=== PATIENT | female | born 1960 | race Hispanic/Latino ===

== ENCOUNTER 2017-10-05 10:41 | Emergency (ER) | payer OTHER ==
[2017-10-05] MEDS ORDERED: ADENOSINE 6 MG/ 2ML VIAL IV ONE (10:51)
[2017-10-05] MEDS ORDERED: NA CHLORIDE 0.9% 1,000 ML ONE (10:54)
[2017-10-05 11:15] LABS: Absolute Monocytes 0.2 K/uL (0.1-1.3); Absolute Neutrophil 8.1 K/uL (1.8-8.0); Basophils % 0.7 % (0-1.3); Eosinophils % 2.2 % (0-4.4); Hematocrit 43.2 % (36.0-45.0); Lymphocytes % 18.8 % (15.3-44.8); MCH 31.2 pg (27.0-35.0); MCV 93.6 fL (80-100); MPV 8.9 fL (7.6-11.3); Monocytes % 2.1 % (3.3-12.3); RBC Red Blood Cell Count 4.61 M/uL (3.86-4.86)
[2017-10-05 11:20] LABS: Protime INR 0.91
--- NOTE | 2017-10-05 11:31 | RAD REPORT ---
EXAM DESCRIPTION: RAD - Chest Single View - 10/05/2017 11:21 am CLINICAL HISTORY: Chest pain. COMPARISON: 08/11/2015 FINDINGS: Portable technique limits examination quality. The lungs are grossly clear. The heart is normal in size. No displaced fractures. IMPRESSION: No acute intrathoracic process suspected.
[2017-10-05] MEDS ORDERED: ASPIRIN 81 MG CHEWABLE TABLET ONE (11:37)
[2017-10-05 11:47] LABS: Albumin 4.3 g/dL (3.2-5.5); Bilirubin Direct 0.1 mg/dL (0-0.2); Bilirubin Total 0.7 mg/dL (0.3-1.2); Protein, Total 7.5 g/dL (6.0-8.3)
[2017-10-05 11:49] LABS: T3 Free 3.59 pg/ml (2.84-4.24)
[2017-10-05 12:09] LABS: Thyroid Stimulating Hormone 8.57 uIU/mL (0.34-5.60)
--- NOTE | 2017-10-05 14:40 | ER ---
Nurse's Notes [facility] Name: Laura Bello Age: 57 yrs Sex: Female : 1960 Arrival Date: 10/05/2017 Time: 10:42 Bed 3 Private MD: Driss Oneill R Diagnosis: Supraventricular tachycardia;Hypothyroidism, unspecified Presentation: 10/05 10:50 Presenting complaint: Patient states: Palpitations and weakness that started around sg 0800 this morning, had this feeling before and they had to shock my heart. Transition of care: patient was not received from another setting of care. Onset of symptoms was October 05, 2017. Initial Sepsis Screen: Does the patient meet any 2 criteria? HR > 90 bpm. No. Patient's initial sepsis screen is negative. Does the patient have a suspected source of infection? No. Patient's initial sepsis screen is negative. Care prior to arrival: None. 10:50 Method Of Arrival: Ambulatory sg 11:10 Acuity: PHILLIP 1 sg Historical: - Allergies: 11:44 No Known Allergies; sg - Home Meds: 11:44 blood pressure medication [Active]; sg - PMHx: 11:44 SVT; sg - PSHx: 11:44 None; sg - Immunization history:: Adult Immunizations up to date. - Social history:: Smoking status: Patient/guardian denies using tobacco. Screenin:32 Abuse screen: Denies threats or abuse. Denies injuries from another. Nutritional sv screening: No deficits noted. Tuberculosis screening: No symptoms or risk factors identified. Fall Risk None identified. Assessment: 12:00 Reassessment: Patient appears in no apparent distress at this time. Patient and/or sg family updated on plan of care and expected duration. Pain level reassessed. Patient is alert, oriented x 3, equal unlabored respirations, skin warm/dry/pink. Patient states feeling better. Patient states symptoms have improved. 12:00 Pain: Pain does not radiate. Cardiovascular: Heart tones S1 S2 present Capillary refill sg is brisk in bilateral fingers Patient's skin is warm and dry. Chest pain is described as mild. 13:00 Reassessment: Patient appears in no apparent distress at this time. Patient and/or sg family updated on plan of care and expected duration. Pain level reassessed. Patient is alert, oriented x 3, equal unlabored respirations, skin warm/dry/pink. awaiting new orders at this time Patient states feeling better. Patient states symptoms have improved. Vital Signs: 10:40 BP 97 / 65; Pulse 190 MON; Resp 19 S; Temp 97.9; Pulse Ox 100% on R/A; Pain 0/10; sg 11:13 BP 96 / 68; Pulse 91 MON; Resp 13 S; Pulse Ox 100% on R/A; sg 11:42 BP 101 / 66; Pulse 92 MON; Resp 17 S; Pulse Ox 100% on R/A; sg 12:45 BP 105 / 65; Pulse 82 MON; Resp 16 S; Pulse Ox 99% ; Pain 0/10; sg 10:40 SVT sg 11:13 Sinus Rhythm sg 12:45 Sinus Rhythm sg ED Course: 10:40 court monitor on. Pulse ox on. NIBP on. sv 10:42 Patient arrived in ED. as 10:42 Driss Oneill MD is Private Physician. as 10:45 Mirza Dexter PA is PHCP. cp 10:45 Surendra Briseno MD is Attending Physician. cp 11:02 Inserted saline lock: 20 gauge in right antecubital area, using aseptic technique. bm6 Blood collected. 11:09 EKG done, by release and technical records clerk. reviewed by Mirza FIGUEROA. at1 11:09 EKG done, by release and technical records clerk. reviewed by Mirza FIGUEROA post cardioversion. at1 11:10 Darrel Corbett, RN is Primary Nurse. sg 11:11 Triage completed. sg 11:18 X-ray completed. Portable x-ray completed in exam room. Patient tolerated procedure mh1 well. 11:19 XRAY Chest (1 view) In Process Unspecified. EDMS 11:30 Flu and/or RSV swab sent to lab. Strep swab sent to lab. sg 11:32 Patient has correct armband on for positive identification. Placed in gown. Bed in low sv position. Call light in reach. Adult w/ patient. 12:00 Arm band placed on left ankle. sg 14:06 Urine collected: clean catch specimen, cloudy. sg 14:39 John Brooks MD is Referral Physician. cp 14:55 No provider procedures requiring assistance completed. IV discontinued, intact, sg bleeding controlled, No redness/swelling at site. Pressure dressing applied. Patient maintains SpO2 saturation greater than 95% on room air. Administered Medications: 10:58 Drug: Adenosine 6 mg Route: IVP; Site: right antecubital; 11:05 Follow up: Response: No adverse reaction; Cardiac rhythm changed sg 11:00 Drug: NS 0.9% 1000 ml Route: IV; Rate: 1 bolus; Site: right antecubital; sg 12:00 Follow up: Response: No adverse reaction; IV Status: Completed infusion; IV Intake: sg 990ml 11:30 Drug: Aspirin Chewable Tablet 324 mg Route: PO; sg 12:05 Follow up: Response: No adverse reaction sg Intake: 12:00 IV: 990ml; Total: 990ml. sg Outcome: 14:39 Discharge ordered by MD. hilaria 14:55 Discharged to home ambulatory, with family. 14:55 Condition: good 14:55 Discharge instructions given to patient, family, Instructed on discharge instructions, follow up and referral plans. safety practices, Demonstrated understanding of instructions, follow-up care. 14:58 Patient left the ED. sg Signatures: Dispatcher [employer] Leatha Tang, Darrel Navarrete RN, RN RN sg Lisha Coleman mh1 Peggy Evans Amanda, lockstitch hemmer EKG Tat1 Mirza Dexter PA PA cp Murray, Brett bm6
--- NOTE | 2017-10-05 14:40 | EDPHYS ---
Physician Documentation [facility] Name: Laura Bello Age: 57 yrs Sex: Female : 1960 Arrival Date: 10/05/2017 Time: 10:42 Bed 3 Private MD: Driss Oneill R ED Physician Surendra Briseno HPI: 10/05 11:06 This 57 yrs old Female presents to ER via Unassigned with complaints of Chest cp Pain. 11:06 Onset: The symptoms/episode began/occurred this morning, at 08:00. Associated signs and cp symptoms: Pertinent positives: shortness of breath. 11:06 The patient has experienced a previous episode. cp Historical: - Allergies: 11:44 No Known Allergies; sg - Home Meds: 11:44 blood pressure medication [Active]; sg - PMHx: 11:44 SVT; sg - PSHx: 11:44 None; sg - Immunization history:: Adult Immunizations up to date. - Social history:: Smoking status: Patient/guardian denies using tobacco. ROS: 11:12 Constitutional: Negative for body aches, chills, fever, poor PO intake. cp 11:12 Eyes: Negative for injury, pain, redness, and discharge. cp 11:12 ENT: Positive for sore throat, Negative for drainage from ear(s), ear pain, difficulty swallowing, difficulty handling secretions, hoarseness. 11:12 Neck: Negative for pain with movement, pain at rest, stiffness. 11:12 Cardiovascular: Positive for chest pain, palpitations, Negative for edema. 11:12 Respiratory: Positive for shortness of breath, Negative for cough, wheezing. 11:12 Abdomen/GI: Negative for abdominal pain, nausea, vomiting, and diarrhea, black/tarry stool, rectal bleeding. 11:12 Skin: Negative for cellulitis, rash. 11:12 Neuro: Positive for general weakness, Negative for altered mental status, headache. 11:12 All other systems are negative. Exam: 10:55 ECG was reviewed by the Attending Physician. cp 11:05 ECG was reviewed by the Attending Physician. cp 11:11 Head/Face: Normocephalic, atraumatic. Eyes: Pupils equal round and reactive to light, cp extra-ocular motions intact. Lids and lashes normal. Conjunctiva and sclera are non-icteric and not injected. Cornea within normal limits. Periorbital areas with no swelling, redness, or edema. ENT: Nares patent. No nasal discharge, no septal abnormalities noted. Tympanic membranes are normal and external auditory canals are clear. Oropharynx with no redness, swelling, or masses, exudates, or evidence of obstruction, uvula midline. Mucous membranes moist. Neck: Trachea midline, no thyromegaly or masses palpated, and no cervical lymphadenopathy. Supple, full range of motion without nuchal rigidity, or vertebral point tenderness. No Meningismus. Chest/axilla: Normal chest wall appearance and motion. Nontender with no deformity. No lesions are appreciated. 11:11 Constitutional: The patient appears in no acute distress, alert, awake, non-diaphoretic, non-toxic, well developed, well nourished, uncomfortable. 11:11 Cardiovascular: Rate: normal, Rhythm: regular, Pulses: Pulses are 2+ in right radial artery and left radial artery. Edema: is not appreciated, JVD: is not appreciated. 11:11 Respiratory: the patient does not display signs of respiratory distress, Respirations: normal, no use of accessory muscles, no retractions, no splinting, no tachypnea, labored breathing, is not present, Breath sounds: are clear throughout, no decreased breath sounds, no stridor, no wheezing. 11:11 Abdomen/GI: Inspection: abdomen appears normal, Bowel sounds: active, all quadrants, Palpation: abdomen is soft and non-tender, in all quadrants, rebound tenderness, is not appreciated, voluntary guarding, is not appreciated, involuntary guarding, is not appreciated. 11:11 Back: pain, is absent, ROM is normal. 11:11 Skin: cellulitis, is not appreciated, no rash present. 11:11 Neuro: Orientation: to person, place \T\ time. Mentation: is normal, Motor: moves all fours, strength is normal, Sensation: no obvious gross deficits. Vital Signs: 10:40 BP 97 / 65; Pulse 190 MON; Resp 19 S; Temp 97.9; Pulse Ox 100% on R/A; Pain 0/10; sg 11:13 BP 96 / 68; Pulse 91 MON; Resp 13 S; Pulse Ox 100% on R/A; sg 11:42 BP 101 / 66; Pulse 92 MON; Resp 17 S; Pulse Ox 100% on R/A; sg 12:45 BP 105 / 65; Pulse 82 MON; Resp 16 S; Pulse Ox 99% ; Pain 0/10; sg 10:40 SVT sg 11:13 Sinus Rhythm sg 12:45 Sinus Rhythm sg MDM: 10:49 Patient medically screened. cp 12:00 Differential diagnosis: electrolyte abnormality, cardiac arrythmia, hyperthyroidism, cp dehydration. 14:38 Data reviewed: vital signs, nurses notes, lab test result(s), EKG, radiologic studies, cp plain films, and as a result, I will discharge patient. 14:38 Test interpretation: by ED physician or midlevel provider: ECG, plain radiologic cp studies. 14:38 ED course: VSS. Patient reports she is chest pain free. Will discharge to home for cp continued monitoring. 10/05 11:04 Order name: Basic Metabolic Panel 10/05 11:04 Order name: BNP; Complete Time: 13:40 10/05 11:04 Order name: CBC with Diff; Complete Time: 13:40 10/05 13:40 Interpretation: Normal except: MYA% 76.2; MN% 2.1; NEUT A 8.1. 10/05 11:04 Order name: Ckmb 10/05 11:04 Order name: CPK 10/05 11:04 Order name: LFT's 10/05 14:02 Interpretation: Normal except: SGOT 59; SGPT 61. 10/05 11:04 Order name: Magnesium cp 10/05 11:04 Order name: PT-INR; Complete Time: 13:40 10/05 11:04 Order name: Ptt, Activated; Complete Time: 13:40 10/05 11:04 Order name: Troponin (emerg Dept Use Only); Complete Time: 13:40 10/05 13:41 Interpretation: TROPED < 0.03; Reviewed. 10/05 11:04 Order name: UDS 10/05 11:04 Order name: TSH 10/05 14:02 Interpretation: Abnormal: TSH 8.57. cp 10/05 11:04 Order name: T3 Free 10/05 14:03 Interpretation: T3F 3.59; Reviewed. 10/05 11:04 Order name: Basic Metabolic Panel EDMN 10/05 14:03 Interpretation: Normal except: GLUC 206; BUN 22; CRE 1.01; GFR 56. 10/05 10:47 Order name: EKG; Complete Time: 10:47 10/05 10:47 Order name: EKG - Nurse/Tech; Complete Time: 11:23 10/05 11:04 Order name: Urine Test (obtain specimen); Complete Time: 14:12 10/05 11:04 Order name: XRAY Chest (1 view); Complete Time: 13:40 10/05 11:04 Order name: Cardiac monitoring; Complete Time: 11:23 10/05 11:04 Order name: IV Saline Lock; Complete Time: 11:23 10/05 11:04 Order name: CKMB Creatine Kinase MB [facility] 10/05 11:11 Order name: Influenza Screen (a \T\ B); Complete Time: 13:40 10/05 11:11 Order name: Strep; Complete Time: 13:40 10/05 11:11 Order name: EKG Electrocardiogram [facility] 10/05 11:57 Order name: Throat Culture [facility] 10/05 12:10 Order name: T4 Free [facility] 10/05 14:42 Order name: Urine Dipstick--Ancillary (enter results) [facility] 10/05 11:04 Order name: Labs collected and sent; Complete Time: 11:23 10/05 11:04 Order name: O2 Per Protocol; Complete Time: 11:23 10/05 11:04 Order name: O2 Sat Monitoring; Complete Time: 11:23 10/05 11:04 Order name: Urine Dipstick-Ancillary (obtain specimen); Complete Time: 14:12 cp EC:55 Rate is 194 beats/min. Rhythm is regular. QRS interval is normal. QT interval is cp normal. Clinical impression: SVT. Interpreted by me. Reviewed by me. 11:05 Rate is 102 beats/min. Rhythm is regular. WI interval is normal. QRS interval is cp normal. QT interval is normal. T waves are Inverted in lead aVL. Interpreted by me. Reviewed by me. Administered Medications: 10:58 Drug: Adenosine 6 mg Route: IVP; Site: right antecubital; sg 11:05 Follow up: Response: No adverse reaction; Cardiac rhythm changed sg 11:00 Drug: NS 0.9% 1000 ml Route: IV; Rate: 1 bolus; Site: right antecubital; 12:00 Follow up: Response: No adverse reaction; IV Status: Completed infusion; IV Intake: sg 990ml 11:30 Drug: Aspirin Chewable Tablet 324 mg Route: PO; 12:05 Follow up: Response: No adverse reaction Disposition: 16:39 Co-signature as Attending Physician, Surendra Briseno MD. Disposition: 10/05/17 14:39 Discharged to Home. Impression: Supraventricular tachycardia, Hypothyroidism, unspecified. - Condition is Stable. - Discharge Instructions: Pharmaceutical Cardioversion, Paroxysmal Supraventricular Tachycardia. - Work release form, Family Work Release, Medication Reconciliation Form, Thank You Letter, Antibiotic Education, Prescription Opioid Use form. - Follow up: John Brooks MD; When: 1 - 2 days; Reason: Recheck today's complaints. - Problem is new. - Symptoms have improved. Signatures: Dispatcher [employer] EDDarrel Hyde RN RN Mirza Dexter PA PA cp Starr, Gregory, MD MD
[2017-10-05 14:47] LABS: Barbiturates NEGATIVE; Benzodiazepines NEGATIVE; Cocaine NEGATIVE; METHAMPHETAM NEGATIVE; Opiates NEGATIVE; Phencyclidine NEGATIVE; THC Cannibis NEGATIVE
[2017-10-05 15:04] VITALS: BP 105/65; O2SAT 99
[2017-10-05 15:22] LABS: Urine Blood NEGATIVE (NEG); Urine Glucose NEGATIVE (NEG); Urine Protein NEGATIVE (NEG); Urine Specific Gravity 1.015 (1.005-1.030)
--- NOTE | 2017-10-05 15:38 | EKG ---
Test Date: 2017-10-05 Test Time: 10:53:04 Cash Management Coordinator: AVNI MEASUREMENT RESULTS: Intervals: Rate: 194 SC: QRSD: 76 QT: 234 QTc: 420 [place]: P: SC: QRS: 4 T: 199 INTERPRETIVE STATEMENTS: Supraventricular tachycardia Marked ST abnormality, possible inferior subendocardial injury Abnormal ECG Compared to ECG 08/12/2015 07:38:08 ST (T wave) deviation now present Sinus rhythm no longer present Electronically Signed On 10-05-17 15:37:38 CDT by Lior Melendez
--- NOTE | 2017-10-05 15:38 | EKG ---
Test Date: 2017-10-05 Test Time: 10:58:06 Service Car Operator: AVNI MEASUREMENT RESULTS: Intervals: Rate: 102 RI: 124 QRSD: 70 QT: 312 QTc: 406 [place]: P: 67 RI: 124 QRS: -3 T: 42 INTERPRETIVE STATEMENTS: Sinus tachycardia Nonspecific ST and T wave abnormality Abnormal ECG Compared to ECG 10/05/2017 10:53:04 Supraventricular tachycardia no longer present ST (T wave) deviation still present Electronically Signed On 10-05-17 15:37:35 CDT by Lior Melendez
== END 2017-10-05 14:58 | disposition home or self-care (01) ==
LOC: ER 10:41
DX: I47.1 Supraventricular tachycardia (principal); E03.9 Hypothyroidism, unspecified
CPT/HCPCS: 36415; 71045; 80048; 80076; 80307; 81003; 82550; 82553; 83735; 83880; 84439; 84443; 84481; 84484; 85025; 85610; 85730; 87070; 87081; 87804; 93005; 96361; 96374; 99291; 99292; J0153; J7030

== ENCOUNTER 2019-07-27 00:08 | Observation (INO) | payer OTHER, SELFPAY ==
[2019-07-27] MEDS ORDERED: NA CHLORIDE 0.9% 500 ML ONE (00:38)
[2019-07-27] MEDS ORDERED: ASPIRIN 81 MG CHEWABLE TABLET ONE (01:06)
[2019-07-27 01:14] LABS: Absolute Lymphocytes (CBC) 2.3 K/uL (0.7-4.9); Basophils % 1.1 % (0-1.3); Hematocrit 38.7 % (36.0-45.0); Lymphocytes % 34.6 % (15.3-44.8); MPV 9.5 fL (7.6-11.3); RBC Red Blood Cell Count 4.08 M/uL (3.86-4.86)
[2019-07-27 01:15] LABS: Protime INR 0.88
[2019-07-27 01:19] LABS: ALT/SGPT 25 U/L (12-78); AST/SGOT 18 U/L (15-37); Albumin 3.6 g/dL (3.4-5.0); Alkaline Phosphatase 87 U/L (45-117); BUN Blood Urea Nitrogen 16 mg/dL (7-18); Bicarbonate 27 mmol/L (21-32); Bilirubin Direct < 0.1 mg/dL (0-0.2); Bilirubin Total 0.2 mg/dL (0.2-1.0); Glucose Level 137 mg/dL (74-106); Magnesium 2.2 mg/dL (1.8-2.4); NT PRO-BNP 76 pg/mL (<125); Potassium 3.4 mmol/L (3.5-5.1); Protein, Total 6.6 g/dL (6.4-8.2); Sodium Level 146 mmol/L (136-145); Troponin (Emerg Dept Use Only) < 0.02 ng/mL (0.0-0.045)
--- NOTE | 2019-07-27 01:48 | ER ---
Nurse's Notes [facility] Name: Laura Almonte Age: 58 yrs Sex: Female : 1960 Arrival Date: 07/27/2019 Time: 00:20 Bed 3 Private MD: Diagnosis: Palpitations;Chest pain, unspecified Presentation: 07/27 00:20 Presenting complaint: EMS states: she is laying down suddenly she felt her HR is rr5 beating so fast. she is on SVT 200bpm, adenosine 12mg/IV given. 00:20 Transition of care: patient was not received from another setting of care. Onset of rr5 symptoms was July 27, 2019. Risk Assessment: Do you want to hurt yourself or someone else? Patient reports no desire to harm self or others. Initial Sepsis Screen: Does the patient meet any 2 criteria? No. Patient's initial sepsis screen is negative. Does the patient have a suspected source of infection? No. Patient's initial sepsis screen is negative. Note patient stated she received first time a flu shot she don't know if she is allergic to it. CBG 165 mg/dl. Care prior to arrival: Medication(s) given: Adenosine, 12 mg, x 1, by EMS. 00:20 Method Of Arrival: EMS: [facility] rr5 00:20 Acuity: PHILLIP 3 rr5 Historical: - Allergies: 00:27 No Known Allergies; rr5 - Home Meds: 00:27 Metoprolol Tartrate Oral [Active]; levothyroxine oral [Active]; atorvastatin oral oral rr5 [Active]; - PMHx: 00:27 SVT; Myocardial infarction; Hypertension; rr5 - PSHx: 00:27 None; rr5 - Immunization history:: Adult Immunizations up to date, Flu vaccine is up to date. - Coronavirus screen:: The patient has NOT traveled to [place] in the past 14 days. Proceed with normal triage process as indicated. - Social history:: Smoking status: Patient reports the use of cigarette tobacco products, smokes one-half pack cigarettes per day, Patient/guardian denies using alcohol, street drugs. - Ebola Screening: : Patient negative for fever greater than or equal to 101.5 degrees Fahrenheit, and additional compatible Ebola Virus Disease symptoms Patient denies exposure to infectious person Patient denies travel to an Ebola-affected area in the 21 days before illness onset. Screenin:28 Abuse screen: Denies threats or abuse. Denies injuries from another. Nutritional rr5 screening: No deficits noted. Tuberculosis screening: No symptoms or risk factors identified. Fall Risk IV access (20 points). Mental Status- Oriented to own ability (0 pts). Total Avila Fall Scale indicates No Risk (0-24 pts). Assessment: 00:30 General: Appears in no apparent distress. Behavior is calm, cooperative, appropriate lp1 for age. Pain: Denies pain. Neuro: Level of Consciousness is awake, alert, obeys commands, Oriented to person, place, time, situation. Cardiovascular: Patient's skin is warm and dry. Respiratory: Respiratory effort is even, unlabored, Breath sounds are clear bilaterally. GI: No signs and/or symptoms were reported involving the gastrointestinal system. : No signs and/or symptoms were reported regarding the genitourinary system. EENT: No signs and/or symptoms were reported regarding the EENT system. Derm: Skin is pink, warm \T\ dry. Musculoskeletal: No deficits noted. 01:14 Reassessment: Patient appears in no apparent distress at this time. Patient is alert, lp1 oriented x 3, equal unlabored respirations, skin warm/dry/pink. Family at bedside Patient denies pain at this time. 02:09 Reassessment: Patient appears in no apparent distress at this time. Patient is alert, lp1 oriented x 3, equal unlabored respirations, skin warm/dry/pink. Patient aware of pending admission. Vital Signs: 00:20 BP 133 / 88; Pulse 103; Resp 20; Temp 97.4; Pulse Ox 100% ; Weight 62.14 kg; Height 4 rr5 ft. 11 in. (149.86 cm); Pain 0/10; 00:45 BP 137 / 82; Pulse 96; Resp 16; Pulse Ox 98% on R/A; lp1 01:00 BP 123 / 84; Pulse 93; Resp 20; Pulse Ox 100% on R/A; lp1 01:45 BP 125 / 76; Pulse 87; Resp 20; Pulse Ox 99% on R/A; lp1 02:10 BP 131 / 82; Pulse 86; Resp 16; Pulse Ox 100% on R/A; Pain 0/10; lp1 00:20 Body Mass Index 27.67 (62.14 kg, 149.86 cm) rr5 ED Course: 00:20 Patient arrived in ED. rr5 00:20 Maintain EMS IV. Dressing intact. Good blood return noted. Site clean \T\ dry. Gauge \T\ rr 5 site: G18 left AC. 00:23 Romeo Huogh MD is Attending Physician. kdr 00:25 Triage completed. rr5 00:27 Arm band placed on right wrist. rr5 00:29 Mirza Dexter PA is PHCP. cp 00:31 Felicia Espinoza, RN is Primary Nurse. lp1 00:31 Patient has correct armband on for positive identification. Placed in gown. Bed in low lp1 position. Call light in reach. circuit court clerk on. Pulse ox on. NIBP on. 01:47 Cori Richardson MD is Hospitalizing Provider. cp 02:09 No provider procedures requiring assistance completed. Patient admitted, IV remains in lp1 place. Administered Medications: 00:40 Drug: NS 0.9% 500 ml Route: IV; Rate: 500 ml/hr; Site: left antecubital; lp1 01:10 Follow up: IV Status: Completed infusion; IV Intake: 500ml lp1 01:09 Drug: Aspirin Chewable Tablet 324 mg Route: PO; lp1 02:12 Follow up: Response: No adverse reaction lp1 Intake: 01:10 IV: 500ml; Total: 500ml. lp1 Outcome: 01:48 Decision to Hospitalize by Provider. cp 02:09 Condition: stable lp1 02:09 Instructed on the need for admit. 02:31 Admitted to Tele via wheelchair, room 405, with chart, Report called to BETTY Tomlin lp1 02:57 Patient left the ED. lp1 Signatures: Romeo Hough MD MD [facility] Felicia Espinoza, RN RN lp1 Mirza eDxter PA PA cp Roque, Raymond, RN RN rr5
--- NOTE | 2019-07-27 01:49 | EDPHYS ---
Physician Documentation [facility] Name: Laura Almonte Age: 58 yrs Sex: Female : 1960 Arrival Date: 07/27/2019 Time: 00:20 Bed 3 Private MD: ED Physician Romeo Hough HPI: 07/27 00:30 This 58 yrs old Female presents to ER via EMS with complaints of irregular cp heart rhythm. 00:30 The patient presents with a history of heart racing. cp 00:30 Context: The symptoms occur at rest. Onset: The symptoms/episode began/occurred at cp 22:00. Duration: The patient or guardian reports a single episode. Associated signs and symptoms: Pertinent positives: chest pain, Pertinent negatives: fever, syncope, vomiting. Severity of symptoms: in the emergency department the symptoms have resolved after treatment by EMS personnel, given 12 mg of adenosine . The patient has experienced similar episodes in the past, a few times. Historical: - Allergies: 00:27 No Known Allergies; rr5 - Home Meds: 00:27 Metoprolol Tartrate Oral [Active]; levothyroxine oral [Active]; atorvastatin oral oral rr5 [Active]; - PMHx: 00:27 SVT; Myocardial infarction; Hypertension; rr5 - PSHx: 00:27 None; rr5 - Immunization history:: Adult Immunizations up to date, Flu vaccine is up to date. - Coronavirus screen:: The patient has NOT traveled to [place] in the past 14 days. Proceed with normal triage process as indicated. - Social history:: Smoking status: Patient reports the use of cigarette tobacco products, smokes one-half pack cigarettes per day, Patient/guardian denies using alcohol, street drugs. - Ebola Screening: : Patient negative for fever greater than or equal to 101.5 degrees Fahrenheit, and additional compatible Ebola Virus Disease symptoms Patient denies exposure to infectious person Patient denies travel to an Ebola-affected area in the 21 days before illness onset. ROS: 00:34 Eyes: Negative for injury, pain, redness, and discharge. cp 00:34 Constitutional: Negative for body aches, chills, fever. 00:34 ENT: Negative for drainage from ear(s), ear pain, sore throat, difficulty swallowing, difficulty handling secretions. 00:34 Cardiovascular: Positive for palpitations. 00:34 Respiratory: Negative for cough, shortness of breath, wheezing. 00:34 Abdomen/GI: Negative for abdominal pain, nausea, vomiting, and diarrhea, constipation, black/tarry stool, rectal bleeding. 00:34 Back: Negative for pain at rest, pain with movement. 00:34 Neuro: Negative for altered mental status, headache, syncope, weakness. 00:34 All other systems are negative. Exam: 00:30 ECG was reviewed by the Attending Physician. cp 00:40 Constitutional: The patient appears in no acute distress, alert, awake, cp non-diaphoretic, non-toxic, well developed, well nourished. 00:40 Head/Face: Normocephalic, atraumatic. cp 00:40 Eyes: Pupils equal round and reactive to light, extra-ocular motions intact. Lids and cp lashes normal. Conjunctiva and sclera are non-icteric and not injected. Cornea within normal limits. Periorbital areas with no swelling, redness, or edema. ENT: Nares patent. No nasal discharge, no septal abnormalities noted. Tympanic membranes are normal and external auditory canals are clear. Oropharynx with no redness, swelling, or masses, exudates, or evidence of obstruction, uvula midline. Mucous membranes moist. Chest/axilla: Normal chest wall appearance and motion. Nontender with no deformity. No lesions are appreciated. 00:40 Cardiovascular: Rate: tachycardic, Rhythm: regular, Heart sounds: murmur, not appreciated, Edema: is not appreciated, JVD: is not appreciated. 00:40 Respiratory: the patient does not display signs of respiratory distress, Respirations: normal, no use of accessory muscles, no retractions, labored breathing, is not present, Breath sounds: are clear throughout, no decreased breath sounds. 00:40 Abdomen/GI: Inspection: abdomen appears normal, Bowel sounds: active, all quadrants, Palpation: abdomen is soft and non-tender, in all quadrants. 00:40 Back: pain, is absent. 00:40 Skin: no rash present. 00:40 Neuro: Orientation: to person, place \T\ time. Mentation: is normal, Cerebellar function: is grossly normal, Motor: moves all fours, strength is normal, Sensation: is normal. Vital Signs: 00:20 BP 133 / 88; Pulse 103; Resp 20; Temp 97.4; Pulse Ox 100% ; Weight 62.14 kg; Height 4 rr5 ft. 11 in. (149.86 cm); Pain 0/10; 00:45 BP 137 / 82; Pulse 96; Resp 16; Pulse Ox 98% on R/A; lp1 01:00 BP 123 / 84; Pulse 93; Resp 20; Pulse Ox 100% on R/A; lp1 01:45 BP 125 / 76; Pulse 87; Resp 20; Pulse Ox 99% on R/A; lp1 02:10 BP 131 / 82; Pulse 86; Resp 16; Pulse Ox 100% on R/A; Pain 0/10; lp1 00:20 Body Mass Index 27.67 (62.14 kg, 149.86 cm) rr5 MDM: 01:45 Data reviewed: vital signs, nurses notes, lab test result(s), EKG, radiologic studies, cp plain films, I have discussed the patient's presentation/case with the attending Emergency Department Physician; and as a result, I will admit patient. 01:45 Test interpretation: by ED physician or midlevel provider: ECG, plain radiologic cp studies, chest xray negative for infiltrates. Counseling: I had a detailed discussion with the patient and/or guardian regarding: the historical points, exam findings, and any diagnostic results supporting the discharge/admit diagnosis, lab results, radiology results. Physician consultation: Cori Richardson MD was called at 01:45, was contacted at 01:45, regarding admission, to the telemetry unit. 01:48 Patient medically screened. cp 07/27 00:24 Order name: Basic Metabolic Panel kdr 07/27 00:24 Order name: CBC with Diff kdr 07/27 00:24 Order name: LFT's kdr 07/27 00:24 Order name: Magnesium kdr 07/27 00:24 Order name: NT PRO-BNP kdr 07/27 00:24 Order name: PT-INR kdr 07/27 00:24 Order name: Troponin (emerg Dept Use Only) kdr 07/27 00:38 Order name: TSH cp 07/27 00:38 Order name: T3 Free cp 07/27 01:18 Order name: CBC with Automated Diff; Complete Time: 01:34 EDMS 07/27 01:35 Interpretation: Normal except: EOSINOPHIL % 6.7. cp 07/27 01:21 Order name: Basic Metabolic Panel; Complete Time: 01:34 EDMS 07/27 01:35 Interpretation: Normal except: NA 146; K 3.4; CL 112; GLUC 137; GFR 70. cp 07/27 01:21 Order name: Liver (Hepatic) Function; Complete Time: 01:34 EDMS 07/27 01:21 Order name: Troponin (Emerg Dept Use Only); Complete Time: :34 EDMS 07/27 01:21 Order name: NT PRO-BNP; Complete Time: :34 EDMS 07/27 00:24 Order name: XRAY Chest (1 view) kdr 07/27 00:24 Order name: EKG; Complete Time: 01:20 kdr 07/27 00:24 Order name: Cardiac monitoring; Complete Time: 00: kdr 07/27 00:24 Order name: EKG - Nurse/Tech; Complete Time: 00: kdr 07/27 00:24 Order name: IV Saline Lock; Complete Time: 00: kdr 07/27 00:24 Order name: Labs collected and sent; Complete Time: 00:44 kdr 07/27 00:24 Order name: O2 Per Protocol; Complete Time: 00: kdr 07/27 00:24 Order name: O2 Sat Monitoring; Complete Time: 00: kdr 07/27 01:21 Order name: Magnesium; Complete Time: :34 EDMS 07/27 01:22 Order name: Protime (+INR); Complete Time: :34 EDMS 07/27 01:59 Order name: T3 Free EDWI 07/27 01:59 Order name: Thyroid Stimulating Hormone EDMS EC:30 Rate is 96 beats/min. Rhythm is regular. [place] interval is normal. QRS interval is normal. cp QT interval is normal. Interpreted by me. Reviewed by me. Administered Medications: 00:40 Drug: NS 0.9% 500 ml Route: IV; Rate: 500 ml/hr; Site: left antecubital; lp1 01:10 Follow up: IV Status: Completed infusion; IV Intake: 500ml lp1 01:09 Drug: Aspirin Chewable Tablet 324 mg Route: PO; lp1 02:12 Follow up: Response: No adverse reaction lp1 Disposition: 03:15 Co-signature as Attending Physician, Romeo Hough MD I agree with the assessment and kdr plan of care. Disposition: 07/27/19 01:48 Hospitalization ordered by Cori Richardson for Observation. Preliminary diagnosis are Palpitations, Chest pain, unspecified. - Bed requested for Telemetry/MedSurg (observation). - Status is Observation. lp1 - Condition is Stable. - Problem is new. - Symptoms have improved. Signatures: Dispatcher [employer] EDMS Lisha Willis RN RN Romeo Hough MD MD [facility] Felicia Espinoza RN RN lp1 Mirza Dexter PA PA cp Roque, Raymond, RN RN rr5 Corrections: (The following items were deleted from the chart) 02:07 01:48 Hospitalization Ordered by Cori Richardson MD for Observation. Preliminary diagnosis is Palpitations; Chest pain, unspecified. Bed requested for Telemetry/MedSurg (observation). Status is Observation. Condition is Stable. Problem is new. Symptoms have improved. cp 02:57 02:07 07/27/2019 01:48 Hospitalization Ordered by Cori Richardson MD for Observation. lp1 Preliminary diagnosis is Palpitations; Chest pain, unspecified. Bed requested for Telemetry/MedSurg (observation). Status is Observation. Condition is Stable. Problem is new. Symptoms have improved. mw
[2019-07-27] MEDS ORDERED: ACETAMINOPHEN 500 MG TAB PO PRN (01:56)
[2019-07-27] MEDS ORDERED: ALPRAZOLAM 0.25 MG TABLET PO PRN (01:56)
[2019-07-27] MEDS ORDERED: MORPHINE 4 MG/ML SYR IV PRN (01:56)
[2019-07-27 01:58] LABS: T3 Free 2.4 pg/mL (2.18-3.98); Thyroid Stimulating Hormone 3.27 uIU/mL (0.360-3.740)
--- NOTE | 2019-07-27 03:06 | P.HP ---
Certification for Inpatient Patient admitted to: Observation With expected LOS: <2 Midnights Patient will require the following post-hospital care: None Practitioner: I am a practitioner with admitting privileges, knowledge of patient current condition, hospital course, and medical plan of care. Services: Services provided to patient in accordance with Admission requirements found in Title 42 Section 412.3 of the Code of Federal Regulations Patient History Date of Service: 07/27/19 Reason for admission: Palpitations and tachyarrhythmia History of Present Illness: Patient is a 58-year-old female who has a history of SVT. She was having some chest discomfort and tachyarrhythmia so she came into the hospital. She was found have a heart rate of 160s. She was given adenosine in the ambulance and she went back into a sinus rhythm. She was brought into the hospital because she was still having some chest pain. She you will be admitted to the hospital for further evaluation. She had an echocardiogram and a stress test performed in 2015 which did not reveal any significant abnormalities. She drinks one cup of coffee in the morning. She did receive a flu shot at [facility] 30 minutes prior to her episode of SVT. We will admit for observation and monitor her overnight. Allergies No Known Allergies Allergy (Verified 07/27/19 03:07) Home Medications: Metoprolol Tartrate [Lopressor*] 25 mg PO BID #60 tab 08/13/15 Atorvastatin Calcium [Lipitor*] 1 tab PO DAILY 07/27/19 Levothyroxine Sodium 1 tab PO DAILY 07/27/19 - Past Medical/Surgical History Diabetic: No -: SVT -: HTN -: Hypothyroidism Past Surgical History: Patient denies surgical history - Family History Mother Medical History: Diabetes Father Medical History: Heart disease, Diabetes - Social History Smoking Status: Former smoker Alcohol use: No CD- Drugs: No Caffeine use: Yes Review of Systems 10-point ROS is otherwise unremarkable Physical Examination - Vital Signs Temperature: 98 F Blood Pressure: 140/70 Pulse: 80 Respirations: 18 Pulse Ox (%): 96 - Physical Exam General: Alert, In no apparent distress, Oriented x3 HEENT: Atraumatic, PERRLA, Mucous membr. moist/pink, EOMI, Sclerae nonicteric Neck: Supple, 2+ carotid pulse no bruit, No LAD, Without JVD or thyroid abnormality Respiratory: Clear to auscultation bilaterally, Normal air movement Cardiovascular: Regular rate/rhythm, Normal S1 S2, No murmurs Gastrointestinal: Normal bowel sounds, Soft and benign, Non-distended, No tenderness Musculoskeletal: No clubbing, No swelling, No tenderness Integumentary: No rashes Neurological: Normal gait, Normal speech, Normal strength at 5/5 x4 extr, Normal tone, Sensation intact, Cranial nerves 3-12 intact, Normal affect Lymphatics: No axilla or inguinal lymphadenopathy - Studies Laboratory Data (last 24 hrs) 07/27/19 00:40: PT 10.4, INR 0.88 07/27/19 00:40: WBC 6.5, Hgb 13.0, Hct 38.7, Plt Count 215 07/27/19 00:40: Sodium 146 H, Potassium 3.4 L, BUN 16, Creatinine 0.83, Glucose 137 H, Magnesium 2.2, Total Bilirubin 0.2, AST 18, ALT 25, Alkaline Phosphatase 87 07/27/19 00:24: PT Cancelled, INR Cancelled 07/27/19 00:24: WBC Cancelled, Hgb Cancelled, Hct Cancelled, Plt Count Cancelled 07/27/19 00:24: Sodium Cancelled, Potassium Cancelled, BUN Cancelled, Creatinine Cancelled, Glucose Cancelled, Magnesium Cancelled, Total Bilirubin Cancelled, AST Cancelled, ALT Cancelled, Alkaline Phosphatase Cancelled Assessment & Plan - Problems (Diagnosis) (1) Chest pain Onset Date: 08/12/15 Current Visit: No Status: Acute (2) SVT (supraventricular tachycardia) Onset Date: 08/12/15 Current Visit: No Status: Acute (3) Hypothyroidism Current Visit: Yes Status: Acute - Plan 1. Serial troponins and EKG 2. Cardiology consultation 3. Continue with low-dose beta-claudette 4. Continue with levothyroxine 5. IV morphine for pain 6. Nitro p.r.n. 7. Refrain from stimulants Discharge Plan: Home Plan to discharge in: 24 Hours - Advance Directives Does patient have a Living Will: No Does patient have a Durable POA for Healthcare: No - Code Status/Comfort Care Code Status Assessed: Yes Code Status: Full Code Critical Care: No Time Spent Managing PTS Care (In Minutes): 45
[2019-07-27 03:09] VITALS: O2SAT 100
[2019-07-27 03:50] VITALS: BMI 26.4
[2019-07-27 06:29] LABS: Troponin I 0.04 ng/mL (0.0-0.045)
--- NOTE | 2019-07-27 06:52 | EKG ---
Test Date: 2019-07-27 Test Time: 00:20:49 Plaster Mixer: MIKAL MEASUREMENT RESULTS: Intervals: Rate: 96 IL: 152 QRSD: 82 QT: 380 QTc: 480 [place]: P: 60 IL: 152 QRS: 6 T: 46 INTERPRETIVE STATEMENTS: Sinus rhythm with premature ventricular complexes Prolonged QT Early transition, cannot rule out posterior infarction Abnormal ECG No previous ECG available for comparison Electronically Signed On 07-27-19 06:52:27 TAXICAB DISPATCHER by John Brooks
--- NOTE | 2019-07-27 07:10 | RAD REPORT ---
EXAM DESCRIPTION: Vivian Single View07/27/2019 1:02 am CLINICAL HISTORY: arrythmia COMPARISON: 2017 FINDINGS: The lungs appear clear of acute infiltrate. The heart is normal size IMPRESSION: No acute abnormalities displayed
[2019-07-27] MEDS ORDERED: ENOXAPARIN 40 MG/0.4 ML SQ SCH (09:00)
[2019-07-27] MEDS ORDERED: ASPIRIN EC 81 MG TAB PO SCH (09:00)
[2019-07-27] MEDS ORDERED: METOPROLOL TAR 50 MG TAB PO SCH (09:00)
--- NOTE | 2019-07-27 11:30 | P.DS ---
Admission Date: 07/27/19 Discharge Date: 07/27/19 Primary Care Provider: Dr. Oneill Disposition: ROUTINE DISCHARGE Discharge Condition: GOOD Reason for Admission: Palpitations and tachyarrhythmia Consultations: Cardiology-Dr. Brooks Procedures: Chest x-ray: Unremarkable Medical problem list: Chest pain with SVT with history of SVT Hypothyroidism Hyperlipidemia Brief History of Present Illness: 58-year-old female presented to the emergency room with chest pain and palpitation. Patient with history of SVT, hyperlipidemia and hypothyroidism. Patient apparently received a flu shot yesterday. Sure reported some palpitations thereafter. Patient was found to have SVT and given adenosine in the ambulance. Patient admitted for further evaluation Hospital Course: Patient presented with chest pain and SVT. Patient with history SVT. Patient was treated with Adenosine with improvement. Heart rate now stable. Patient had received influenza vaccine. This may have been a reaction to this. Patient now stable at this time. Patient seen and evaluated by Cardiology. No intervention was required. Patient is stable for discharge. Patient will continue with metoprolol 25 mg 1 pill twice daily. Recommend follow-up with Cardiology in 2-4 weeks to follow up this hospitalization. Patient may require extra dose of metoprolol if with palpitations in the future. Patient will follow up with Dr. Oneill her PCP in 1 week to follow up hospitalization. Patient with hyperlipidemia. At discharge will continue with Lipitor 10 mg daily. Patient with hypothyroidism. At discharge will continue with levothyroxine 25 mcg daily. Tsh and free T4 within normal range. Vital Signs/Physical Exam: Temp Pulse Resp BP Pulse Ox 97 F 70 16 118/63 96 07/27/19 08:00 07/27/19 08:48 07/27/19 08:00 07/27/19 08:48 07/27/19 08:00 General: Alert, In no apparent distress, Oriented x3, Cooperative HEENT: Atraumatic Neck: Supple Respiratory: Clear to auscultation bilaterally, Normal air movement Cardiovascular: Normal pulses, Regular rate/rhythm Gastrointestinal: Normal bowel sounds, Soft and benign, Non-distended, No tenderness, No masses, No rebound, No guarding Musculoskeletal: No erythema, No tenderness, No warmth Integumentary: No tenderness/swelling, No erythema, No warmth, No cyanosis Neurological: Normal speech, Normal strength at 5/5 x4 extr, Normal tone, Normal affect Laboratory Data at Discharge: WBC 6.5 K/uL (4.3-10.9) 07/27/19 00:40 Hgb 13.0 g/dL (12.0-15.0) 07/27/19 00:40 Hct 38.7 % (36.0-45.0) 07/27/19 00:40 Plt Count 215 K/uL (152-406) 07/27/19 00:40 PT 10.4 SECONDS (9.5-12.5) 07/27/19 00:40 INR 0.88 07/27/19 00:40 Sodium 146 mmol/L (136-145) H 07/27/19 00:40 Potassium 3.4 mmol/L (3.5-5.1) L 07/27/19 00:40 BUN 16 mg/dL (7-18) 07/27/19 00:40 Creatinine 0.83 mg/dL (0.55-1.3) 07/27/19 00:40 Glucose 137 mg/dL (74-106) H 07/27/19 00:40 Magnesium 2.2 mg/dL (1.8-2.4) 07/27/19 00:40 Total Bilirubin 0.2 mg/dL (0.2-1.0) 07/27/19 00:40 AST 18 U/L (15-37) 07/27/19 00:40 ALT 25 U/L (12-78) 07/27/19 00:40 Alkaline Phosphatase 87 U/L (45-117) 07/27/19 00:40 Troponin I 0.04 ng/mL (0.0-0.045) 07/27/19 05:45 Triglycerides 87 mg/dL (<150) 07/27/19 05:45 Cholesterol 127 mg/dL (<200) 07/27/19 05:45 HDL Cholesterol 51 mg/dL (40-60) 07/27/19 05:45 Cholesterol/HDL Ratio 2.49 07/27/19 05:45 Home Medications: Metoprolol Tartrate [Lopressor*] 25 mg PO BID #60 tab 08/13/15 Atorvastatin Calcium [Lipitor*] 1 tab PO DAILY 07/27/19 Levothyroxine Sodium 1 tab PO DAILY 07/27/19 Patient Discharge Instructions: 1. Recommend follow-up with her PCP in 1-2 weeks to follow up hospitalization. 2. Patient presented with chest pain and SVT. Patient with history SVT. Patient was treated with Adenosine with improvement. Heart rate now stable. Patient had received influenza vaccine. This may have been a reaction to this. Patient now stable at this time. Patient seen and evaluated by Cardiology. No intervention was required. Patient is stable for discharge. Patient will continue with metoprolol 25 mg 1 pill twice daily. Recommend follow-up with Cardiology in 2-4 weeks to follow up this hospitalization. Patient may require extra dose of metoprolol if with palpitations in the future. 3. Patient with hyperlipidemia. At discharge will continue with Lipitor 10 mg daily. 4. Patient with hypothyroidism. At discharge will continue with levothyroxine 25 mcg daily. Tsh and free T4 within normal range. Diet: AHA Activity: Ad jovanna Time spent managing pt's care (in minutes): 55
--- NOTE | 2019-07-27 12:17 | CON ---
History Of Present Illness: Ms. Almonte is 58. She has paroxysmal supraventricular tachycardia. She probably has some spells that did not bring her to the hospital, but this is her third one in the la [facility] few years to bring her to the hospital. She tried to take a metoprolol but it did not help. In t he emergency room she received adenosine and is doing much better. She is admitted overnight. She h as not had any recurrence. Enzymes are normal. No chest pain or shortness of breath. Mrs. Almonte i s healthy other than her SVT. Home Medications: Her home medication list includes metoprolol 25 b.i.d., and she takes an extra 50 when she has a spell, but last night that did not work. She also takes levothyroxine 25 mcg and ator vastatin 10 mg. Allergies: SHE HAS NO ALLERGIES. Social History: Uses no tobacco. Physical Examination: Vital Signs: 4 feet 11, 130 pounds. General: Alert, oriented, pleasant, not in distress. Heart: Normal. Lungs: Normal. Extremity: Normal. Her EKG shows tall R-waves in V1. It is possible she has old posterior infarct or concealed accessor y pathway causing her SVT. I have recommended that she undergo an ablation for her paroxysmal suprav entricular tachycardia. She has always refused to do it in the past. I am pretty sure she will refu se again, although she did say she would think about it. She does not want to be referred presently. I have encouraged her to call my office so we can refer her for an ablation of whatever pathway is causing her SVT and I think she would be able to avoid hospitalizations if she were to do that. Thank you very much for the kind referral of Ms. Almonte. At this point, I think she can be discharge d home. MYCHAL/ROSIBEL Voice ID: [id number] Report ID: [id number]
[2019-07-27 12:18] VITALS: BP 118/67; TEMP 97.2
--- NOTE | 2019-07-28 14:28 | EKG ---
Test Date: 2019-07-27 Test Time: 06:33:18 Test Inspection Engineer: RT-O MEASUREMENT RESULTS: Intervals: Rate: 67 VA: 172 QRSD: 84 QT: 426 QTc: 450 [place]: P: 70 VA: 172 QRS: 27 T: 61 INTERPRETIVE STATEMENTS: Sinus rhythm with occasional premature ventricular complexes Otherwise normal ECG Compared to ECG 07/27/2019 00:20:49 Prolonged QT interval no longer present Myocardial infarct finding no longer present Electronically Signed On 07-28-19 14:28:03 SENIOR SALES COMPENSATION ANALYST by John Brooks
== END 2019-07-27 12:53 | disposition home or self-care (01) ==
LOC: ER 00:08 → ERHOLD 01:56 → 4TH 02:33
PROVIDERS: ADMIT Hospitalist; ATTEND Hospitalist
DX: R07.9 Chest pain, unspecified (principal); I47.1 Supraventricular tachycardia; E03.9 Hypothyroidism, unspecified; E78.5 Hyperlipidemia, unspecified
CPT/HCPCS: 36415; 71045; 80048; 80061; 80076; 83735; 83880; 84443; 84481; 84484; 85025; 85610; 93005; 99285; G0378; J1650; J7040

== ENCOUNTER 2022-08-11 18:24 | Emergency (ER) | payer OTHER, SELFPAY ==
[2022-08-11] MEDS ORDERED: ADENOSINE 6 MG/ 2ML VIAL IV ONE ×2 (18:50→18:56)
[2022-08-11] MEDS ORDERED: NA CHLORIDE 0.9% 2,000 ML ONE (18:51)
[2022-08-11] MEDS ORDERED: MAGNESIUM SULFATE 1 gm IVPB 1 GM/100 ML BAG IV ONE (18:57)
[2022-08-11 19:08] LABS: Absolute Lymphocytes (CBC) 2.5 K/uL (0.7-4.9); Hematocrit 42.6 % (36.0-45.0); Lymphocytes % 24.6 % (15.3-44.8); MCV 96.1 fL (80-100); MPV 7.9 fL (7.6-11.3); RBC Red Blood Cell Count 4.43 M/uL (3.86-4.86)
[2022-08-11 19:11] LABS: Protime INR 0.96
[2022-08-11 19:33] LABS: Potassium 3.8 mmol/L (3.5-5.1); SARS-CoV-2 Antigen Rapid Res Negative (Negative); Thyroid Stimulating Hormone 2.61 uIU/mL (0.358-3.740); Troponin High Sensitivity 21.5 pg/mL (<58.9)
--- NOTE | 2022-08-11 20:25 | ER ---
Nurse's Notes [facility] Name: Laura Almonte Age: 62 yrs Sex: Female : 1960 Arrival Date: 08/11/2022 Time: 18:26 Bed 5 Private MD: Diagnosis: Supraventricular tachycardia Presentation: 08/11 18:38 Chief complaint: Patient states: chest pain that began at 2:30pm today. Pt states "I've aa5 been sick with a fever and diarrhea and I have no taste". 18:38 Coronavirus screen: diarrhea, fever. Ebola Screen: Patient denies travel to an [facility] Ebola-affected area in the 21 days before illness onset. Initial Sepsis Screen: Does the patient meet any 2 criteria? HR > 90 bpm. Does the patient have a suspected source of infection? No. Patient's initial sepsis screen is negative. Risk Assessment: Do you want to hurt yourself or someone else? Patient reports no desire to harm self or others. Onset of symptoms was August 11, 2022. 18:38 Acuity: PHILLIP 1 aa5 18:38 Method Of Arrival: Wheelchair aa5 Historical: - Allergies: 18:38 No Known Allergies; aa5 - Home Meds: 20:34 Metoprolol Tartrate Oral [Active]; levothyroxine oral [Active]; atorvastatin Oral kd3 [Active]; - PMHx: 18:38 Hypertension; Myocardial infarction; SVT; thyroid problem; aa5 - Immunization history:: Adult Immunizations up to date. - Social history:: Smoking status: Patient reports the use of cigarette tobacco products. - Family history:: not pertinent. - Hospitalizations: : No recent hospitalization is reported. Screenin:57 [facility] ED Fall Risk Assessment (Adult) Score/Fall Risk Level 0 - 2 = Low Risk hb Oriented to surroundings, Maintained a safe environment, Educated pt \\T\\ family on fall prevention, incl call for assistance when getting out of bed. Abuse screen: Denies threats or abuse. Denies injuries from another. Nutritional screening: No deficits noted. Tuberculosis screening: No symptoms or risk factors identified. Assessment: 18:57 Reassessment: Patient appears in no apparent distress at this time. General: Appears in hb no apparent distress. Behavior is calm, cooperative. Pain: Pain currently is 5 out of 10 on a pain scale. Neuro: Level of Consciousness is awake, alert, obeys commands, Oriented to person, place, time, situation. Cardiovascular: Reports chest pain, shortness of breath, Patient's skin is warm and dry. Respiratory: Respiratory effort is even, unlabored. GI: No signs and/or symptoms were reported involving the gastrointestinal system. : No signs and/or symptoms were reported regarding the genitourinary system. EENT: No signs and/or symptoms were reported regarding the EENT system. Derm: Skin is pink, warm \\T\\ dry. Musculoskeletal: No signs and/or symptoms reported regarding the musculoskeletal system. 20:34 Pain: Pain began. kd3 20:35 Pain: Pain does not radiate. kd3 Vital Signs: 18:38 BP 74 / 57; Pulse 210; Resp 24 S; Pulse Ox 100% on R/A; aa5 18:46 BP 86 / 63; Pulse 209; Temp 98.1(O); aa5 18:57 BP 101 / 71; Pulse 92; Resp 17; Pulse Ox 99% on R/A; hb 20:24 BP 97 / 67; Pulse 82; Resp 16; Pulse Ox 100% on R/A; kd3 ED Course: 18:26 Patient arrived in ED. mr 18:38 Arm band placed on. aa5 18:46 Inserted saline lock: 20 gauge in right antecubital area, using aseptic technique. IV aa5 inserted by Sandra Reyes RN. 18:46 EKG done, by ED staff, reviewed by Jeffrey Taylor MD. aa5 18:49 EKG done, by ED staff, reviewed by Jeffrey Taylor MD. aa5 18:54 Jeffrey Taylor MD is Attending Physician. rn 18:57 Patient has correct armband on for positive identification. Client placed on continuous hb cardiac and pulse oximetry monitoring. NIBP monitoring applied. 18:57 Inserted. Patient maintains SpO2 saturation greater than 95% on room air. hb 18:58 Triage completed. aa5 19:26 Attending Physician role handed off by Jeffrey Taylor MD rt 19:26 Russell Ascencio MD is Attending Physician. rt 20:24 Luana Salazar, RN is Primary Nurse. kd3 20:24 Ryan No MD is Referral Physician. rt 20:34 No provider procedures requiring assistance completed. IV discontinued, intact, kd3 bleeding controlled, No redness/swelling at site. Pressure dressing applied. Administered Medications: 18:48 Drug: Adenocard (adenosine) 6 mg Route: IVP; Site: right antecubital; aa5 20:36 Follow up: Response: No adverse reaction kd3 18:56 Drug: Magnesium Sulfate 1 grams Route: IVPB; Infused Over: 1 hrs; Site: right hb antecubital; 20:36 Follow up: IV Status: Completed infusion kd3 Medication: 18:57 VIS not applicable for this client. hb Outcome: 20:25 Discharge ordered by . rt 20:34 Discharged to home ambulatory. kd3 20:34 Condition: stable 20:34 Discharge instructions given to patient, family, Instructed on discharge instructions, follow up and referral plans. Demonstrated understanding of instructions, follow-up care. 20:36 Patient left the ED. kd3 Signatures: Casie Smith Roman, MD MD rn Calderon, Audri, RN RN aa5 Sandra Reyes RN RN Luana Salazar RN RN kd3 Russell Ascencio MD MD rt Corrections: (The following items were deleted from the chart) 18:57 18:53 Inserted saline lock: 20 gauge in right antecubital area, using aseptic aa5 technique. IV inserted by Sandra Reyes RN aa5 19:00 18:46 BP 86 / 63; Pulse 209bpm; aa5 aa5
--- NOTE | 2022-08-11 20:25 | EDPHYS ---
Physician Documentation [facility] Name: Laura Almonte Age: 62 yrs Sex: Female : 1960 Arrival Date: 08/11/2022 Time: 18:26 Bed 5 Private MD: ED Physician Russell Ascencio HPI: 08/11 19:02 This 62 yrs old Female presents to ER via Wheelchair with complaints of Chest rn Pain, palpitations. 19:02 The patient or guardian reports chest pain that is located primarily in the substernal rn area. Onset: 5 hour(s) ago. The pain radiates to. Associated signs and symptoms: Pertinent positives: palpitations, Pertinent negatives: syncope, vomiting. The chest pain is described as a heaviness. Duration: The patient or guardian reports a single episode, that is still ongoing. Modifying factors: The symptoms are alleviated by nothing. the symptoms are aggravated by nothing. Severity of pain: At its worst the pain was moderate in the emergency department the pain is unchanged. The patient has experienced similar episodes in the past. Hx of the same in past, states happens often but doesn't usually have to come in. UNsure of exact diagnosis but has been both shocked and given "medication to fix it". . Historical: - Allergies: 18:38 No Known Allergies; aa5 - Home Meds: 20:34 Metoprolol Tartrate Oral [Active]; levothyroxine oral [Active]; atorvastatin Oral kd3 [Active]; - PMHx: 18:38 Hypertension; Myocardial infarction; SVT; thyroid problem; aa5 - Immunization history:: Adult Immunizations up to date. - Social history:: Smoking status: Patient reports the use of cigarette tobacco products. - Family history:: not pertinent. - Hospitalizations: : No recent hospitalization is reported. ROS: 19:02 Constitutional: Negative for fever, chills, and weight loss, Eyes: Negative for injury, rn pain, redness, and discharge, Neck: Negative for injury, pain, and swelling, Cardiovascular: + chest pain and palpitations Respiratory: + sob Abdomen/GI: Negative for abdominal pain, nausea, vomiting, diarrhea, and constipation, MS/Extremity: Negative for injury and deformity, Skin: Negative for injury, rash, and discoloration, Neuro: Negative for headache, weakness, numbness, tingling, and seizure. Exam: 19:02 Constitutional: This is a well developed, well nourished patient who is awake, alert, rn anxious Head/Face: Normocephalic, atraumatic. Cardiovascular: Tachycardic, regular Respiratory: + mild tachypnea Abdomen/GI: soft, non-tender Skin: Warm, dry MS/ Extremity: Pulses equal, no cyanosis. Neuro: Awake and alert, GCS 15 20:25 ECG was reviewed by the Attending Physician. rt 20:25 ECG was reviewed by the Attending Physician. Vital Signs: 18:38 BP 74 / 57; Pulse 210; Resp 24 S; Pulse Ox 100% on R/A; aa5 18:46 BP 86 / 63; Pulse 209; Temp 98.1(O); aa5 18:57 BP 101 / 71; Pulse 92; Resp 17; Pulse Ox 99% on R/A; hb 20:24 BP 97 / 67; Pulse 82; Resp 16; Pulse Ox 100% on R/A; kd3 MDM: 18:54 Patient medically screened. rn 19:05 ED course: Pt given adenosine, . rn 19:20 Transition of care: After a detail discussion of the patient's case, care is rn transferred to Russell Ascencio MD. 20:25 Differential diagnosis: mitral valve prolapse, SVT, A-fib. Data reviewed: vital signs, rt nurses notes, lab test result(s), EKG. Consideration of Admission/Observation Escalation of care including admission/observation considered. I considered the following discharge prescriptions or medication management in the emergency department Medications were administered in the Emergency Department. See MAR. Test considered but Not performed: CT: Patient reported a left arm numbness, no focal numbness from the left to the right side. He only wants the arm, equal motion study analyst strength, no facial droop. Suspected paresthesia, do not suspect CVA, imaging is not indicated.. Care significantly affected by the following chronic conditions: SVT. Counseling: I had a detailed discussion with the patient and/or guardian regarding: the historical points, exam findings, and any diagnostic results supporting the discharge/admit diagnosis, lab results, radiology results, the need for outpatient follow up. 08/11 18:54 Order name: Basic Metabolic Panel rn 08/11 18:54 Order name: CBC with Diff rn 08/11 18:54 Order name: NT PRO-BNP rn 08/11 18:54 Order name: PT-INR rn 08/11 18:54 Order name: Troponin HS rn 08/11 18:54 Order name: XRAY Chest (1 view) rn 08/11 18:54 Order name: EKG; Complete Time: 18:55 rn 08/11 18:54 Order name: Cardiac monitoring; Complete Time: 18:56 rn 08/11 18:54 Order name: EKG - Nurse/Tech; Complete Time: 18:56 rn 08/11 18:54 Order name: IV Saline Lock; Complete Time: 18:56 rn 08/11 18:54 Order name: Labs collected and sent; Complete Time: 18:56 rn 08/11 18:54 Order name: O2 Per Protocol; Complete Time: 18:56 rn 08/11 18:54 Order name: O2 Sat Monitoring; Complete Time: 18:56 rn 08/11 18:54 Order name: SARS RAPID rn 08/11 18:55 Order name: TSH rn 08/11 18:55 Order name: T4 Free rn 08/11 19:09 Order name: CBC with Automated Diff; Complete Time: 19:15 EDMS / 19:12 Order name: Protime (+INR); Complete Time: 19:15 EDMS / 19:33 Order name: Basic Metabolic Panel; Complete Time: 20:02 EDMS / 19:33 Order name: Troponin High Sensitivity; Complete Time: 20:02 EDMS /02 19:33 Order name: NT PRO-BNP; Complete Time: 20:02 EDMS / 19:33 Order name: T4 Free; Complete Time: 20:02 EDMS / 19:33 Order name: Thyroid Stimulating Hormone; Complete Time: 20:02 EDMS / 19:34 Order name: SARS-COV-2 Antigen Rapid; Complete Time: 20:02 EDMS EC:25 Rate is 209 beats/min. Rhythm is regular, PSVT with No ectopy, Rate related ST and T rt wave changes. QRS [place] is Normal. QRS interval is normal. QT interval is normal. No Q waves. 20:25 Rate is 101 beats/min. Rhythm is regular, Normal Sinus Rhythm with No ectopy. QRS [place] rt is Normal. Left axis deviation noted. PA interval is normal. QRS interval is normal. QT interval is normal. Clinical impression: NSR w/ Non-specific ST/T Changes. Administered Medications: 18:48 Drug: Adenocard (adenosine) 6 mg Route: IVP; Site: right antecubital; aa5 20:36 Follow up: Response: No adverse reaction kd3 18:56 Drug: Magnesium Sulfate 1 grams Route: IVPB; Infused Over: 1 hrs; Site: right hb antecubital; 20:36 Follow up: IV Status: Completed infusion kd3 Disposition Summary: 08/11/22 20:25 Discharge Ordered Location: Home rt Condition: Stable rt Diagnosis - Supraventricular tachycardia rt Followup: rt - With: Ryan No MD - When: 2 - 3 days - Reason: Discharge Instructions: - Discharge Summary Sheet rt - Supraventricular Tachycardia, Adult rt Forms: - Medication Reconciliation Form rt - Thank You Letter rt - Antibiotic Education rt - Prescription Opioid Use rt Signatures: Dispatcher [employer] EDJeffrey Burroughs MD MD rn Calderon, Audri, RN RN aa5 Sandra Reyes RN RN Luana Salazar RN RN kd3 Russell Ascencio MD MD rt
[2022-08-11 20:44] VITALS: TEMP 98.1
[2022-08-11 20:47] VITALS: BP 97/67; O2SAT 100
--- NOTE | 2022-08-11 21:55 | RAD REPORT ---
[facility]58 [facility] CLINICAL HISTORY: CHEST PAIN COMPARISON: Chest Single View dated 07/27/2019; Chest Single View dated 10/05/2017; CHEST SINGLE VIEW dated 08/11/2015; CHEST PA AND LAT 2 VIEW dated 05/24/2009 TECHNIQUE: Portable AP view of the chest. FINDINGS: New patchy right basal airspace opacities, could reflect atelectasis or early pneumonia. N o pneumothorax or effusion. The cardiomediastinal contours are unremarkable. IMPRESSION: New patchy right basal airspace opacities, could reflect atelectasis or early pneumonia.
--- NOTE | 2022-08-12 14:30 | EKG ---
Test Date: 2022-08-11 Test Time: 18:49:53 Coil Winder Hand: AGA MEASUREMENT RESULTS: Intervals: Rate: 209 IL: 120 QRSD: 74 QT: 202 QTc: 376 [place]: P: 4 IL: 120 QRS: -22 T: 136 INTERPRETIVE STATEMENTS: Supraventricular tachycardia ST & T wave abnormality, consider lateral ischemia Abnormal ECG Compared to ECG 07/27/2019 06:33:18 ST (T wave) deviation now present Possible ischemia now present Sinus rhythm no longer present Ventricular premature complex(es) no longer present Electronically Signed On 08-12-22 14:28:48 COMMUNITY COORDINATOR by Ryan No
--- NOTE | 2022-08-12 14:30 | EKG ---
Test Date: 2022-08-11 Test Time: 18:52:59 Lead Android Developer: AGA MEASUREMENT RESULTS: Intervals: Rate: 101 MS: 132 QRSD: 74 QT: 314 QTc: 407 [place]: P: 60 MS: 132 QRS: -40 T: 70 INTERPRETIVE STATEMENTS: Sinus tachycardia Left axis deviation Junctional ST depression, probably normal Abnormal ECG Compared to ECG 08/11/2022 18:49:53 Left-axis deviation now present Possible ischemia no longer present ST (T wave) deviation still present Electronically Signed On 08-12-22 14:28:26 COLOR TESTER by Ryan No
== END 2022-08-11 20:36 | disposition home or self-care (01) ==
LOC: ER 18:24
DX: I47.1 Supraventricular tachycardia (principal); I10 Essential (primary) hypertension; I25.2 Old myocardial infarction; Z20.822 Contact with and (suspected) exposure to COVID-19
CPT/HCPCS: 96365; 93005 ×2; 85025; 80048; 36415; 85610; 84443; 84484; 84439; 83880; 71045; 96375; 99291; 99292; 96366; 87811; J0153; J3475; J7030

== ENCOUNTER 2023-12-02 20:20 | Emergency (ER) | payer OTHER ==
--- OUTSIDE RECORDS SUMMARY | 2023-12-02 20:23 | XMS REPORT | Continuity of Care Document ---
Author Name Unknown Address [address] [place] [id number] [facility] thconnect Address [address] [place] [address] Care Team Providers Care Care Transition Mgr Name Role Phone Montana Escobar Attending Clinician Unavailable Encounters Start Date/Time End Date/Time Encounter Type Admission Type Attending Clinicians Care Facility Care Department Encounter ID Source 2023-11-24 13:55[facility] [id number] 2023-11-23 10:29:00 [facility] [id number] [facility] 2023-09-25 16:17:03 [facility] [id number] [facility] 2023-09-13 11:41:01 Outpatient Montana Escobar [facility] [id number] [facility] 2023-06-19 14:09:01 [facility] [id number] [facility]
[2023-12-02 20:47] LABS: Absolute Basophils 0.1 K/uL (0-0.5); Absolute Eosinophils 0.3 K/uL (0-0.5); Absolute Lymphocytes (CBC) 1.7 K/uL (0.7-4.9); Absolute Monocytes 0.4 K/uL (0.1-1.3); Absolute Neutrophil 2.1 K/uL (1.8-8.0); Basophils % 1.3 % (0-1.3); Eosinophils % 5.8 % (0-4.4); Hemoglobin 12.6 g/dL (12.0-15.0); Lymphocytes % 37.9 % (15.3-44.8); MCH 33.5 pg (27.0-35.0); MCV 98.4 fL (80-100); MPV 8.8 fL (7.6-11.3); Platelets 205 thou/uL (152-406); RBC Red Blood Cell Count 3.76 M/uL (3.86-4.86); Red Cell Distribution Width 13.1 % (12.1-15.2)
[2023-12-02 21:29] LABS: Anion Gap 5.6 mEq/L (5.0-15.0); Potassium 3.6 mEq/L (3.5-5.1); Thyroid Stimulating Hormone 2.96 uIU/mL (0.358-3.740)
--- NOTE | 2023-12-02 22:02 | EDPHYS ---
Physician Documentation [facility] Name: Laura Almonte Age: 63 yrs Sex: Female : 1960 Arrival Date: 12/02/2023 Time: 20:20 Bed 3 Private MD: ED Physician Yoni Aviles HPI: 12/01 20:34 This 63 yrs old Female presents to ER via EMS with complaints of Palpitations. ec2 20:34 Patient with history of SVT arrives today for SVT. Patient states that she felt ec2 palpitations, called EMS, took her home metoprolol, EMS reports that they give the patient 12 mg of adenosine and subsequently she has converted. Patient has no complaints at this time, reports that she is asymptomatic and is back to her baseline. Denies any chest pain or difficulty breathing, denies any recent illnesses, no vomiting, no diarrhea, no significant stimulant use.. Historical: - Allergies: 20:32 No Known Allergies; cm10 - PMHx: 20:32 Hypertension; Myocardial infarction; SVT; Thyroid problem; cm10 - Immunization history:: Adult Immunizations up to date. - Infectious Disease History:: Denies. - Social history:: Smoking status: Patient denies any tobacco usage or history of. ROS: 20:34 Constitutional: as per hpi ec2 Exam: 20:34 Constitutional: GEN: NAD Head: atraumatic Eyes: EOMI Ears: External ears are ec2 normal. CV: regular rate LUNGS: no respiratory distress ABD: non-distended SKIN: no evidence of rashes MSK: no evidence of trauma NEURO: moves all extremities equally Vital Signs: 20:30 BP 129 / 82; Pulse 81; Resp 16; Temp 98.2; Pulse Ox 98% on R/A; Weight 52.62 kg; Height cm10 4 ft. 11 in. ; Pain 0/10; 20:30 BP 121 / 80; Pulse 80; Resp 18; Pulse Ox 100% on R/A; al5 20:46 BP 120 / 65; Pulse 79; Resp 18; Pulse Ox 100% on R/A; al5 21:00 BP 123 / 70; Pulse 81; Resp 18; Pulse Ox 100% on R/A; al5 20:30 Body Mass Index 23.43 (52.62 kg, 149.86 cm) cm10 20:30 Pain Scale: Adult cm10 MDM: 20:29 Patient medically screened. ec2 20:34 Data reviewed: vital signs. ED course: Patient arrives today for evaluation of SVT. ec2 Examination remarkable for well-appearing nontoxic and epidural has reassuring hemodynamics. Will obtain lab work, EKG, chest x-ray. Differential diagnosis includes electrolyte disturbances, arrhythmia, anemia.. 20:35 ED course: Patient with no chest pain or chest pain equivalents, will hold on obtaining ec2 troponin.. 20:39 ED course: EKG independently reviewed and interpreted by me, shows normal sinus rhythm, ec2 rate of 80, no acute ST segment elevations, intervals are nonconcerning. . 21:35 ED course: Metabolic profile shows appropriate electrolytes. CBC is reassuring. TSH and ec2 free T4 are unremarkable. . 22:01 ED course: Chest x-ray independently reviewed and interpreted by me, shows no acute ec2 intrathoracic process. On reassessment patient is well-appearing in no acute distress, no recurrence of her SVT. Will discharge home, return precautions given. Instructed her to follow-up with cardiology.. 12/01 20:31 Order name: Basic Metabolic Panel; Complete Time: 21:35 ec2 12/01 20:31 Order name: CBC with Diff; Complete Time: 21:35 ec2 12/01 20:31 Order name: TSH; Complete Time: 21:35 ec2 12/01 20:31 Order name: T4 Free; Complete Time: 21:35 ec2 12/01 20:31 Order name: XRAY Chest (1 view) ec2 12/01 20:31 Order name: EKG; Complete Time: 20:32 ec2 12/01 20:31 Order name: Cardiac monitoring; Complete Time: 20:43 ec2 12/01 20:31 Order name: EKG - Nurse/Tech; Complete Time: 20:43 ec2 12/01 20:31 Order name: IV Saline Lock; Complete Time: 20:43 ec2 12/01 20:31 Order name: Labs collected and sent; Complete Time: 20:43 ec2 12/01 20:31 Order name: O2 Per Protocol; Complete Time: 20:44 ec2 12/01 20:31 Order name: O2 Sat Monitoring; Complete Time: 20:44 ec2 Administered Medications: No medications were administered Disposition Summary: 12/02/23 22:01 Discharge Ordered Notes: Location: Home ec2 Condition: Stable ec2 Diagnosis - Supraventricular tachycardia ec2 Followup: ec2 - With: Ryan No MD - When: - Reason: Recheck today's complaints Discharge Instructions: - Discharge Summary Sheet ec2 - Supraventricular Tachycardia, Adult, [id number] ec2 Forms: - Medication Reconciliation Form ec2 - Antibiotic Education ec2 - Prescription Opioid Use ec2 - Patient Portal Instructions ec2 - Leadership Thank You Letter ec2 Signatures: Dispatcher [employer] Jennifer Lugo, RN RN cm10 Yoni Aviles MD MD ec2 Corrections: (The following items were deleted from the chart) 20:32 20:32 BASIC METABOLIC PANEL+C.LAB.BRZ ordered. EDMS EDMS 20:32 20:32 CBC+H.LAB.BRZ ordered. EDMS EDMS 20:32 20:32 THYROID STIMULAT HORMONE+C.LAB.BRZ ordered. EDMS EDMS 20:32 20:32 T4 FREE+C.LAB.BRZ ordered. EDMS EDMS
--- NOTE | 2023-12-02 22:02 | ER ---
Nurse's Notes [facility] Name: Laura Almonte Age: 63 yrs Sex: Female : 1960 Arrival Date: 12/02/2023 Time: 20:20 Bed 3 Private MD: Diagnosis: Supraventricular tachycardia Presentation: 12/01 20:27 Chief complaint: EMS states: Called to patient's home due to patient having generalized cm10 weakness. EMS states that patient was found laying on the floor. EMS states that when they arrived her heart rate was in the 180s. Pt states that she has a history of SVT and was told that when she felt like her pulse was elevated that she was to take a metoprolol and lay down. EMS states that they gave pt Adenosine 12mg and pt converted to NSR from SVT. Pt has no complaints at this time. 20:30 Coronavirus screen: Client denies travel out of the [place] in the last 14 days. At this cm10 time, the client does not indicate any symptoms associated with coronavirus-19. Ebola Screen: Patient denies travel to an Ebola-affected area in the 21 days before illness onset. No symptoms or risks identified at this time. Initial Sepsis Screen: Does the patient meet any 2 criteria? No. Patient's initial sepsis screen is negative. Does the patient have a suspected source of infection? No. Patient's initial sepsis screen is negative. Risk Assessment: Do you want to hurt yourself or someone else? Patient reports no desire to harm self or others. Onset of symptoms was December 02, 2023. Care prior to arrival: Medication(s) given: Adenosine, 12 mg, x 1, Normal saline infusion, 400mL IV initiated. 18 GA, in the left antecubital area, EKG showing SVT. 20:30 Method Of Arrival: EMS: [facility] cm10 20:30 Acuity: PHILLIP 3 cm10 Triage Assessment: 20:32 General: Appears in no apparent distress. comfortable, Behavior is calm, cooperative. cm10 Pain: Denies pain. Neuro: Level of Consciousness is awake, alert, obeys commands, Oriented to person, place, time, situation, Appropriate for age. Cardiovascular: No deficits noted. Patient's skin is warm and dry. Rhythm is sinus rhythm. Respiratory: No deficits noted. Airway is patent Respiratory effort is even, unlabored, Respiratory pattern is regular, symmetrical. Derm: No deficits noted. Skin is intact, Skin is pink, warm \T\ dry. Musculoskeletal: Range of motion: intact in all extremities. Historical: - Allergies: 20:32 No Known Allergies; cm10 - PMHx: 20:32 Hypertension; Myocardial infarction; SVT; Thyroid problem; cm10 - Immunization history:: Adult Immunizations up to date. - Infectious Disease History:: Denies. - Social history:: Smoking status: Patient denies any tobacco usage or history of. Screenin:[address] [facility] ED Fall Risk Assessment (Adult) History of falling in the last 3 months, cm10 including since admission No falls in past 3 months (0 pts) Confusion or Disorientation No (0 pts) Intoxicated or Sedated No (0 pts) Impaired Gait No (0 pts) Mobility Assist Device Used No (0 pt) Altered Elimination No (0 pt) Score/Fall Risk Level 0 - 2 = Low Risk Oriented to surroundings, Maintained a safe environment, Hourly rounding (assess needs \T\ fall precautionary measures) done. Abuse screen: Denies threats or abuse. Denies injuries from another. Nutritional screening: No deficits noted. Tuberculosis screening: No symptoms or risk factors identified. Assessment: 21:44 Reassessment: Patient appears in no apparent distress at this time. No changes from 10 previously documented assessment. Patient and/or family updated on plan of care and expected duration. Pain level reassessed. Patient is alert, oriented x 3, equal unlabored respirations, skin warm/dry/pink. Vital Signs: 20:30 BP 129 / 82; Pulse 81; Resp 16; Temp 98.2; Pulse Ox 98% on R/A; Weight 52.62 kg; Height cm10 4 ft. 11 in. ; Pain 0/10; 20:30 BP 121 / 80; Pulse 80; Resp 18; Pulse Ox 100% on R/A; al5 20:46 BP 120 / 65; Pulse 79; Resp 18; Pulse Ox 100% on R/A; al5 21:00 BP 123 / 70; Pulse 81; Resp 18; Pulse Ox 100% on R/A; al5 20:30 Body Mass Index 23.43 (52.62 kg, 149.86 cm) cm10 20:30 Pain Scale: Adult 10 ED Course: 20:26 Patient arrived in ED. cm10 20:29 Yoni Aviles MD is Attending Physician. ec2 20:32 Triage completed. cm10 20:33 Arm band placed on Patient placed in an exam room, on a stretcher, on manager monitoring, cm10 on pulse oximetry. EKG completed in triage. Results shown to MD. 20:34 Maintain EMS IV. Dressing intact. Good blood return noted. Site clean \T\ dry. Gauge \T\ cm 10 site: 18G left AC. 20:43 Jennifer Evans, RN is Primary Nurse. cm10 20:44 Patient has correct armband on for positive identification. Bed in low position. Call cm10 light in reach. Side rails up X2. Provided Education on: Pt educated on ER process and procedures.. Client placed on continuous cardiac and pulse oximetry monitoring. NIBP monitoring applied. awake overnight monitor on. 21:58 XRAY Chest (1 view) In Process Unspecified. EDMS 22:03 Ryan No MD is Referral Physician. ec2 22:29 No provider procedures requiring assistance completed. IV discontinued, intact, al5 bleeding controlled, No redness/swelling at site. Pressure dressing applied. Administered Medications: No medications were administered Medication: 20:44 VIS not applicable for this client. cm10 Outcome: 22:01 Discharge ordered by . ec2 22:29 Discharged to home ambulatory, with family, al5 22:29 Condition: improved 22:29 Discharge instructions given to patient, family, Instructed on discharge instructions, follow up and referral plans. medication usage, Demonstrated understanding of instructions, follow-up care, medications, 22:30 Patient left the ED. al5 Signatures: Dispatcher [employer] EDMS Jennifer Evans, RN RN cm10 Yoni Aviles MD MD ec2 Lanette Lama RN RN al5
--- NOTE | 2023-12-02 22:27 | RAD REPORT ---
EXAM DESCRIPTION: Laurentt Single View12/02/2023 9:57 pm CLINICAL HISTORY: CHEST PAIN COMPARISON: Chest Single View dated 08/11/2022; Chest Single View dated 07/27/2019; Chest Single View d ated 10/05/2017; CHEST SINGLE VIEW dated 08/11/2015 TECHNIQUE: Portable AP view of the chest. FINDINGS: The lungs are clear. No pneumothorax or effusion. The cardiomediastinal contours are unre markable. IMPRESSION: No acute cardiopulmonary process.
[2023-12-02 22:34] VITALS: TEMP 98.2
[2023-12-02 22:56] VITALS: BP 123/70; O2SAT 100
--- NOTE | 2023-12-03 13:28 | EKG ---
Test Date: 2023-12-02 Test Time: 20:35:58 Power Cleaner Operator: [id number] MEASUREMENT RESULTS: Intervals: Rate: 80 KS: 174 QRSD: 76 QT: 388 QTc: 447 [place]: P: 74 KS: 174 QRS: -27 T: 54 INTERPRETIVE STATEMENTS: Normal sinus rhythm Normal ECG Compared to ECG 08/11/2022 18:52:59 Sinus tachycardia no longer present Left-axis deviation no longer present ST (T wave) deviation no longer present Electronically Signed On 12-03-23 13:27:01 CDT by Ryan No
== END 2023-12-02 22:30 | disposition home or self-care (01) ==
LOC: ER 20:20
DX: I47.10 Supraventricular tachycardia, unspecified (principal)
CPT/HCPCS: 36415; 71045; 80048; 84439; 84443; 85025; 93005

== ENCOUNTER 2025-03-01 11:55 | Emergency (ER) | payer OTHER ==
--- OUTSIDE RECORDS SUMMARY | 2025-03-01 12:00 | XMS REPORT | Continuity of Care Document ---
Author Name Unknown Address [address] [place] [address] [facility] Address [address] [place] [address] Care Team Providers Care Chain Maker Machine Name Role Phone [place] Escobar Attending Clinician Unavailable Encounters Start Date/Time End Date/Time Encounter Type Admission Type Attending Clinicians Care Facility Care Department Encounter ID Source 2024-05-01 10:51:00 Outpatient Escobar, [place] [facility] [id number] [facility] 2024-01-19 15:45:00 Outpatient Escobar, [place] [facility] [id number] [facility] 2024-01-15 15:09:00 Outpatient Escobar, [place] [facility] [id number] [facility] 2023-11-24 13:55:00 Outpatient Escobar, [place] [facility] [id number] [facility] 2023-11-23 10:29:00 Outpatient Escobar, [place] [facility] [id number] [facility] 2023-09-25 16:17:03 Outpatient Escobar, [place] [facility] [id number] [facility] 2023-09-13 11:41:01 Outpatient Escobar, [place] [facility] [id number] [facility] 2023-06-19 14:09:01 Outpatient Escobar, [place] [facility] [id number] [facility]
[2025-03-01] MEDS ORDERED: ADENOSINE 6 MG/ 2ML VIAL IV ONE (12:06)
[2025-03-01] MEDS ORDERED: NA CHLORIDE 0.9% 1,000 ML ONE (12:06)
[2025-03-01] MEDS ORDERED: MAGNESIUM SULFATE 1 gm IVPB 1 GM/100 ML BAG IV ONE (12:06)
[2025-03-01 12:16] LABS: Absolute Lymphocytes (CBC) 2.4 K/uL (0.7-4.9); Hematocrit 44.2 % (36.0-45.0); Hemoglobin 14.8 g/dL (12.0-15.0); MCH 32.6 pg (27.0-35.0); MCHC 33.4 g/dL (32.0-36.0); MCV 97.5 fL (80-100); MPV 8.6 fL (7.6-11.3); Nucleated RBC Absolute Count 0.0 (0-0); Nucleated Red Blood Cells % 0.0 % (0-0); RBC Red Blood Cell Count 4.53 M/uL (3.86-4.86); White Blood Count 5.60 thou/uL (4.3-10.9)
[2025-03-01 12:22] LABS: PT Prothrombin Time 9.8 SECONDS (10-13.0); Protime INR 0.86
--- NOTE | 2025-03-01 12:40 | RAD REPORT ---
EXAMINATION: ONE VIEW CHEST XR CLINICAL INDICATION: CHEST PAIN TECHNIQUE: Frontal chest projection is submitted. Examination is limited by patient positioning and t echnique. COMPARISON: 12/02/2023 FINDINGS: The lungs are well inflated and clear. The heart is upper limit of normal in size. No displaced fract ures identified. IMPRESSION: No acute intrathoracic abnormalities.
[2025-03-01 12:42] LABS: ALT/SGPT 31 U/L (13-56); AST/SGOT 27 U/L (15-37); Albumin 3.6 g/dL (3.4-5.0); Albumin/Globulin Ratio 1.0 (1.1-1.8); Alkaline Phosphatase 72 U/L (45-117); Anion Gap 10.0 mEq/L (5.0-15.0); BUN Blood Urea Nitrogen 7 mg/dL (7-18); Bilirubin Indirect, Calculated 0.2 mg/dL (0.2-0.8); Globulin 3.6 g/dL (2.3-3.5); Glucose Level 173 mg/dL (74-106); NT PRO-BNP 408 pg/mL (<125); Potassium 4.0 mEq/L (3.5-5.1); Troponin High Sensitivity 9.0 pg/mL (<58.9)
--- NOTE | 2025-03-01 13:34 | ER ---
Nurse's Notes [facility] Name: Laura Bello Age: 64 yrs Sex: Female : 1960 Arrival Date: 03/01/2025 Time: 11:55 Bed 3 Private MD: Diagnosis: Supraventricular tachycardia Presentation: 03/01 12:05 Chief complaint: Palpitations and chest pain x 2 hours. Coronavirus screen: At this hb time, the client does not indicate any symptoms associated with coronavirus-19. Ebola Screen: No symptoms or risks identified at this time. Initial Sepsis Screen: Does the patient meet any 2 criteria? No. Patient's initial sepsis screen is negative. Does the patient have a suspected source of infection? No. Patient's initial sepsis screen is negative. Risk Assessment: Do you want to hurt yourself or someone else? Patient reports no desire to harm self or others. Onset of symptoms was March 01, 2025. 12:05 Method Of Arrival: Ambulatory hb 12:05 Acuity: PHILLIP 1 hb Historical: - Allergies: 12:06 No Known Allergies; hb - PMHx: 12:06 Hypertension; Myocardial infarction; SVT; Thyroid problem; hb - Immunization history:: Adult Immunizations unknown. - Infectious Disease History:: Denies. - Family history:: not pertinent. - Social history:: Smoking status: unknown. - Hospitalizations: : No recent hospitalization is reported. Screenin:15 [facility] ED Fall Risk Assessment (Adult) History of falling in the last 3 months, nh2 including since admission No falls in past 3 months (0 pts) Confusion or Disorientation No (0 pts) Intoxicated or Sedated No (0 pts) Impaired Gait No (0 pts) Mobility Assist Device Used No (0 pt) Altered Elimination No (0 pt) Score/Fall Risk Level 0 - 2 = Low Risk Oriented to surroundings, Maintained a safe environment, Educated pt \T\ family on fall prevention, incl call for assistance when getting out of bed, Assessed \T\ reinforced patient's understanding of fall precautions. Abuse screen: Denies threats or abuse. Denies injuries from another. Nutritional screening: No deficits noted. Tuberculosis screening: No symptoms or risk factors identified. Assessment: 12:05 General: Appears distressed, uncomfortable, Behavior is cooperative, anxious, quiet. nh2 Pain:. Neuro: Level of Consciousness is awake, alert, obeys commands, Oriented to person, place, time, situation, Appropriate for age. Cardiovascular: Patient's skin is warm and dry. Rhythm is SVT. 12:05 Pain: Complains of pain in chest Pain does not radiate. Pain currently is 10 out of 10 nh2 on a pain scale. Quality of pain is described as pressure, Pain began suddenly, Is continuous. Respiratory: Airway is patent Trachea midline Respiratory effort is even, unlabored, Respiratory pattern is regular, symmetrical. GI: Abdomen is round non-distended. : No signs and/or symptoms were reported regarding the genitourinary system. EENT: No signs and/or symptoms were reported regarding the EENT system. Derm: Skin is intact, Skin is pale. Musculoskeletal: Circulation, motion, and sensation intact. Range of motion: intact in all extremities. 12:15 Reassessment: Patient is alert, oriented x 3, equal unlabored respirations, skin nh2 warm/dry/pink. Patient states feeling better. Patient states symptoms have improved. Cardiovascular: Rhythm is sinus rhythm. 13:09 Reassessment: Patient is alert, oriented x 3, equal unlabored respirations, skin nh2 warm/dry/pink. Patient denies pain at this time. Patient states feeling better. Patient states symptoms have improved. 14:10 Reassessment: Patient is alert, oriented x 3, equal unlabored respirations, skin aa5 warm/dry/pink. Patient denies pain at this time. Patient states feeling better. Patient states symptoms have improved. Vital Signs: 12:05 Pulse 185; Resp 24; Pulse Ox 99% ; Pain 8/10; hb 12:07 BP 86 / 56; Pulse 181; Resp 19; Pulse Ox 98% on R/A; aa5 12:15 BP 112 / 68; Pulse 85; Resp 18 S; Pulse Ox 99% on R/A; aa5 12:15 BP 112 / 68; Pulse 78; rn 12:31 BP 106 / 68; Pulse 74; Resp 19; Pulse Ox 100% on R/A; nh2 12:53 BP 100 / 63; Pulse 71; Resp 18 S; Pulse Ox 98% on R/A; aa5 13:09 BP 106 / 67; Pulse 72; Resp 17; Pulse Ox 100% on R/A; nh2 14:00 BP 102 / 68; Pulse 68; Resp 18 S; Temp 97.2(TE); Pulse Ox 99% on R/A; aa5 12:05 Pain Scale: Adult hb ED Course: 11:56 Patient arrived in ED. ts1 11:57 Jeffrey Taylor MD is Attending Physician. rn 12:01 Bertin Garcia Jr, RN is Primary Nurse. nh2 12:06 Triage completed. hb 12:06 EKG done, by ED staff, reviewed by Jeffrey Taylor MD. aa5 12:06 No provider procedures requiring assistance completed. Patient maintains SpO2 nh2 saturation greater than 95% on room air. 12:06 Patient has correct armband on for positive identification. Bed in low position. Call nh2 light in reach. Side rails up X 1. Provided Education on: using call light for assistance. Client placed on continuous cardiac and pulse oximetry monitoring. NIBP monitoring applied. education counselor on. Pulse ox on. NIBP on. 12:06 Arm band placed on left wrist. nh2 12:15 EKG done, by consulting technical manager. reviewed by Jeffrey Taylor MD. aa5 12:20 Initial lab(s) drawn, by farm laborer, sent to lab. Inserted saline lock: 20 gauge in right ts3 antecubital area, using aseptic technique. Blood collected. Flushed with 10 mL NS. 12:34 XRAY Chest (1 view) In Process Unspecified. EDMS 13:33 Ryan No MD is Referral Physician. rn 14:10 IV discontinued, intact, bleeding controlled, No redness/swelling at site. Pressure aa5 dressing applied. Administered Medications: 12:06 Drug: Adenocard IVP 6 mg IVP once; VO at 1208 Route: IVP; Site: right antecubital; nh2 12:15 Follow up: Response: Cardiac rhythm changed nh2 12:17 Drug: NS 0.9% IV 500 ml 500 ml IV at 1 bolus once; to be given as a bolus over 30 nh2 minutes Volume: 500 ml; Route: IV; Rate: 1 bolus; Site: right antecubital; 12:47 Follow up: IV Status: Completed infusion aa5 12:17 Drug: Magnesium Sulfate IVPB 1 grams IVPB once over 1 hrs Route: IVPB; Infused Over: 1 nh2 hrs; Site: right antecubital; 13:17 Follow up: IV Status: Completed infusion aa5 Medication: 12:27 VIS not applicable for this client. nh2 Outcome: 13:33 Discharge ordered by . rn 14:10 Discharged to home via wheelchair, with family, aa5 14:10 Condition: improved 14:10 Discharge instructions given to patient, Instructed on discharge instructions, follow up and referral plans. Demonstrated understanding of instructions, follow-up care, 14:14 Patient left the ED. aa5 Signatures: Dispatcher [employer] EDMS Jeffrey Taylor MD MD rn Calderon, Audri RN RN aa5 Sandra Reyes RN RN Yolanda Martinez PAS PAS ts1 Bertin Garcia Jr, RN RN nh2 Jany Mcdaniels ts3 Corrections: (The following items were deleted from the chart) 12:22 12:20 EKG done, by consulting technical manager. reviewed by Jeffrey Taylor MD ts3 aa5 12:23 12:12 Adenocard IVP 6 mg IVP in right antecubital aa5 nh2
--- NOTE | 2025-03-01 13:34 | EDPHYS ---
Physician Documentation [facility] Name: Laura Bello Age: 64 yrs Sex: Female : 1960 Arrival Date: 03/01/2025 Time: 11:55 Bed 3 Private MD: ED Physician Jeffrey Taylor HPI: 03/01 12:44 This 64 yrs old Female presents to ER via Ambulatory with complaints of Chest rn Pain. 12:44 Patient reports chest pain and heart racing that began at 10 AM. No fever or chills. rn Has history of SVT. States has not followed up with cardiology. Does not take any medication.. Historical: - Allergies: 12:06 No Known Allergies; hb - PMHx: 12:06 Hypertension; Myocardial infarction; SVT; Thyroid problem; hb - Immunization history:: Adult Immunizations unknown. - Infectious Disease History:: Denies. - Family history:: not pertinent. - Social history:: Smoking status: unknown. - Hospitalizations: : No recent hospitalization is reported. ROS: 12:44 Constitutional: Negative for fever, chills, and weight loss, Cardiovascular: Positive rn for heart racing and palpitations and chest pain Respiratory: Negative for shortness of breath, cough, wheezing, and pleuritic chest pain, Abdomen/GI: Negative for abdominal pain, nausea, vomiting, diarrhea, and constipation, MS/Extremity: Negative for injury and deformity, Skin: Negative for injury, rash, and discoloration, Neuro: Negative for headache, weakness, numbness, tingling, and seizure, Exam: 12:44 Constitutional: This is a well developed, well nourished patient who is awake, alert, rn appears pale Cardiovascular: Tachycardic, regular. Weak pulses Respiratory: Mild tachypnea Skin: No cyanosis MS/ Extremity: Pulses equal, no cyanosis. Neurovascular intact. Full, normal range of motion. Equal circumference. Neuro: Awake and alert, GCS 15 12:45 ECG was reviewed by the Attending Physician. rn Vital Signs: 12:05 Pulse 185; Resp 24; Pulse Ox 99% ; Pain 8/10; hb 12:07 BP 86 / 56; Pulse 181; Resp 19; Pulse Ox 98% on R/A; aa5 12:15 BP 112 / 68; Pulse 85; Resp 18 S; Pulse Ox 99% on R/A; aa5 12:15 BP 112 / 68; Pulse 78; rn 12:31 BP 106 / 68; Pulse 74; Resp 19; Pulse Ox 100% on R/A; nh2 12:53 BP 100 / 63; Pulse 71; Resp 18 S; Pulse Ox 98% on R/A; aa5 13:09 BP 106 / 67; Pulse 72; Resp 17; Pulse Ox 100% on R/A; nh2 14:00 BP 102 / 68; Pulse 68; Resp 18 S; Temp 97.2(TE); Pulse Ox 99% on R/A; aa5 12:05 Pain Scale: Adult hb Procedures: 12:14 Performed Chemical cardioversion with adenosine given, 6 mg, now back to sinus rhythm rn and blood pressure is now 114/67, heart rate 77. Patient was on cardiac monitor technician and ZOLL monitor with defibrillation pads on patient entire time. Tolerated well.. MDM: 11:57 Medical Screening Exam initiated rn 13:31 Differential diagnosis: acute myocardial infarction, acute pericarditis, anxiety, SVT. rn labor and delivery Score: History: Slightly Suspicious (0), ECG: Non specific repolarization disturbance / LBTB / PM (1), Age: > or = 65 years (2), Risk Factors: > or = 3 Risk factors for atherosclerotic disease (2), Troponin: < or = 1 x Normal Limit (0), Total Score = 5. Data reviewed: vital signs, nurses notes, lab test result(s), EKG, radiologic studies, plain films, and as a result, I will discharge patient. Consideration of Admission/Observation Escalation of care including admission/observation considered. Escalation considered but this has happened several times in the past, is back to baseline with stable vital signs and negative workup. Joint decision to discharge home.. Independent interpretation of the following test(s) in the Emergency Department EKG: See my EKG interpretation above X-Ray: My interpretation is Chest x-ray images negative for pneumonia or pneumothorax per my interpretation. Care significantly affected by the following chronic conditions: Hypertension, SVT, myocardial infarction. Counseling: I had a detailed discussion with the patient and/or guardian regarding the historical points, exam findings, and any diagnostic results supporting the discharge/admit diagnosis, lab results, radiology results, the need for outpatient follow up, to return to the emergency department if symptoms worsen or persist or if there are any questions or concerns that arise at home. Response to treatment: the patient's symptoms have resolved after treatment, the patient's condition has returned to base line, the patient is now symptom free, and as a result, I will discharge patient. Special discussion: Based on the patient's history, exam, and Dx evaluation, there is no indication for emergent intervention or inpatient Tx. It is understood by the patient/guardian that if the Sx's persist or worsen they need to return immediately for re-evaluation. I discussed with the patient/guardian in detail that at this point there is no indication for admission to the hospital. It is understood, however, that if the symptoms persist or worsen the patient needs to return immediately for re-evaluation. Based on the history and exam findings, there is no indication for further emergent testing or inpatient evaluation. I discussed with the patient/guardian the need to see the bed rubber for further evaluation of the symptoms. ED course: Patient understands the importance of following up with her bed rubber. Patient has been told numerous times to follow-up with cardiology and patient has yet to follow-up with them. Patient understands that SVT is likely to happen again. Told to avoid caffeine as she drinks 4 or 5 cups of coffee daily. This episode started while drinking coffee this morning. I have personally reviewed all of the results, including but not limited to blood tests and imaging deemed necessary to safely discharge this patient at this time. All results given to and printed out for patient. I personally went over all the results with the patient and answered all questions. Patient will follow-up with PCP and or specialist as discussed. Return precautions given and understood.. 03/01 11:57 Order name: Basic Metabolic Panel; Complete Time: 12:48 03/01 11:57 Order name: CBC with Diff; Complete Time: 12:48 03/01 11:57 Order name: LFT's; Complete Time: 12:48 03/01 11:57 Order name: NT PRO-BNP; Complete Time: 12:48 03/01 11:57 Order name: PT-INR; Complete Time: 12:48 03/01 11:57 Order name: Troponin HS; Complete Time: 12:48 03/01 11:57 Order name: XRAY Chest (1 view); Complete Time: 12:48 03/01 11:57 Order name: Cardiac monitoring; Complete Time: 12:15 rn 03/01 11:57 Order name: EKG - Nurse/Tech; Complete Time: 12:15 rn 03/01 11:57 Order name: IV Saline Lock; Complete Time: 12:15 rn 03/01 11:57 Order name: Labs collected and sent; Complete Time: 12:15 rn 03/01 11:57 Order name: O2 Per Protocol; Complete Time: 12:15 rn 03/01 11:57 Order name: O2 Sat Monitoring; Complete Time: 12:15 rn EC:45 Rate is 179 beats/min. Rhythm is regular. Left axis deviation noted. QRS is positive in rn lead I and negative in lead aVF. QRS interval is normal. QT interval is normal. T waves are Normal. No ST changes noted. Clinical impression: SVT. Interpreted by me. Reviewed by me. Administered Medications: 12:06 Drug: Adenocard IVP 6 mg IVP once; VO at 1208 Route: IVP; Site: right antecubital; nh2 12:15 Follow up: Response: Cardiac rhythm changed nh2 12:17 Drug: NS 0.9% IV 500 ml 500 ml IV at 1 bolus once; to be given as a bolus over 30 nh2 minutes Volume: 500 ml; Route: IV; Rate: 1 bolus; Site: right antecubital; 12:47 Follow up: IV Status: Completed infusion aa5 12:17 Drug: Magnesium Sulfate IVPB 1 grams IVPB once over 1 hrs Route: IVPB; Infused Over: 1 nh2 hrs; Site: right antecubital; 13:17 Follow up: IV Status: Completed infusion aa5 Disposition: 13:31 Critical Care:. rn Disposition Summary: 03/01/25 13:33 Discharge Ordered Notes: Location: Home rn Problem: an acute exacerbation rn Symptoms: have improved rn Condition: Stable rn Diagnosis - Supraventricular tachycardia rn Followup: rn - With: Ryan No MD - When: As needed - Reason: Recheck today's complaints, Re-evaluation by your physician Discharge Instructions: - Discharge Summary Sheet rn - Chemical Cardioversion rn - Supraventricular Tachycardia, Adult rn Forms: - Medication Reconciliation Form rn - Antibiotic bisque tile burner - Prescription Opioid Use rn - Patient Portal Instructions rn - Leadership Thank You Letter document review attorney time excluding procedures: 13:31 Critical care time: Bedside Care: 35 minutes. Total time: 35 minutes rn Signatures: Dispatcher [employer] EDMS Jeffrey Taylor MD MD rn Calderon, Audri, RN RN aa5 Sandra Reyes, BETTY RN Jose Gan, Bertin, RN RN nh2 Corrections: (The following items were deleted from the chart) 11:57 11:57 BASIC METABOLIC PANEL+C.LAB.BRZ ordered. EDMS EDMS 11:57 11:57 CBC+H.LAB.BRZ ordered. EDMS EDMS 11:57 11:57 HEPATIC FUNCTION+C.LAB.BRZ ordered. EDMS EDMS 11:57 11:57 PROBNP+C.LAB.BRZ ordered. EDMS EDMS 11:57 11:57 PROTIME (+INR)+COAG.LAB.BRZ ordered. EDMS EDMS 11:57 11:57 Troponin High Sensitivity+C.LAB.BRZ ordered. EDMS EDMS 11:57 11:57 Chest Single View+RAD.RAD.BRZ ordered. EDMS EDMS 12:15 12:14 Performed Chemical cardioversion with adenosine given, 6 mg, now back to sinus rn rhythm and blood pressure is now 114/67, heart rate 77. rn
[2025-03-01 14:26] VITALS: BP 106/67; O2SAT 100
[2025-03-01 14:30] VITALS: TEMP 97.4
== END 2025-03-01 14:14 | disposition home or self-care (01) ==
LOC: ER 11:55
DX: I47.10 Supraventricular tachycardia, unspecified (principal); I10 Essential (primary) hypertension; I25.2 Old myocardial infarction
CPT/HCPCS: 96365; 93005 ×2; 85025; 80048; 36415; 85610; 80076; 84484; 83880; 71045; 96375; 99285; J0153; J3475; J7030